=== PATIENT | female | born 1940 | race Caucasian/White ===

== ENCOUNTER → 2017-02-03 | Outpatient (CLI) | payer OTHER ==
[~2017-02-03] MED LIST: ATOR10TA88 PO; ATV/2 PO; CARB1TAB8 PO; LEVO112T2 PO; MCR/40125 PO; OMEP20TA PO; POTASSIUM PO; SERT1TAB68 PO; TRIH2TAB3 PO
--- NOTE | 2017-02-03 15:05 | DIAGNOSTIC IMAGING REPORT ---
RENAL ULTRASOUND HISTORY: Pain ACUTE RENAL INSUFFICIENCY COMPARISON: None. FINDINGS: Right kidney: Maximum dimension 9.1 cm. No evidence for hydronephrosis. Normal corticomedullary differentiation and cortical thickness. Left kidney: Maximum dimension 9.8 cm. No evidence for hydronephrosis. Normal corticomedullary differentiation and cortical thickness. Bladder: No bladder wall thickening. The bilateral ureteral jets were identified. IMPRESSION: Normal renal ultrasound. Electronically signed by: Bandar Plascencia M.D. 02/03/2017 3:04 PM Dictated Date/Time: 02/03/2017 3:03 PM
== END | disposition home or self-care (01) ==
LOC: C.ULTR 14:28
PROVIDERS: ATTEND Internal Medicine Nephrology
DX: N28.9 Disorder of kidney and ureter, unspecified (principal)

== ENCOUNTER → 2017-02-03 | Outpatient (CLI) | payer OTHER ==
[2017-02-03 14:47] LABS: URINE APPEARANCE CLEAR (CLEAR); URINE BILIRUBIN NEG (NEG); URINE COLOR YELLOW; URINE EPITHELIAL CELL AUTO >30 /lpf (0-5); URINE NITRITE NEG (NEG); URINE SPECIFIC GRAVITY 1.012 (1.000-1.030); UROBILINOGEN NEG (NEG); ZZUR CULT IF INDIC CLEAN CATCH NO
[2017-02-03 14:48] LABS: MANUAL MICROSCOPIC REQUIRED? NO; REVIEW REQ? NO
[2017-02-03 15:12] LABS: URINE PROTIEN/CREAT RATIO 0.1 (0-0.2); URINE TOTAL PROTEIN 11.1 mg/dl (0-11.9)
== END | disposition home or self-care (01) ==
LOC: C.LAB1850 13:49
PROVIDERS: ATTEND Internal Medicine Nephrology
DX: N18.9 Chronic kidney disease, unspecified (principal); N28.9 Disorder of kidney and ureter, unspecified

== ENCOUNTER → 2017-03-06 | Outpatient (CLI) | payer OTHER ==
[~2017-03-06] MED LIST changes: +ATOR10TA82 PO; -ATOR10TA88 PO
[2017-03-06 14:37] LABS: BASO % 0.3 %; BASO ABS # 0.01 K/uL (0-0.2); COMPLETE YES; EOS % 3.4 %; HEMATOCRIT 34.6 % (37-47); LYMPH % 42.4 %; LYMPH ABS # 1.64 K/uL (1.2-3.4); MEAN CELL VOLUME 89.2 fL (80-100); MEAN CORPUSCULAR HEMOGLOBIN 29.4 pg (25-34); MEAN CORPUSCULAR HGB CONC 32.9 g/dl (32-36); MEAN PLATELET VOLUME 9.8 fL (7.4-10.4); MONO % 11.4 %; NEUT % 42.5 %; PLATELET COUNT 213 K/uL (130-400); RED BLOOD COUNT 3.88 M/uL (4.2-5.4); WHITE BLOOD COUNT 3.87 K/uL (4.8-10.8)
[2017-03-06 15:07] LABS: BLOOD UREA NITROGEN 20 mg/dl (7-18); BUN/CREATININE RATIO 15.1 (10-20); CALCIUM 8.9 mg/dl (8.5-10.1); CARBON DIOXIDE 30 mmol/L (21-32); CHLORIDE 107 mmol/L (98-107); GLUCOSE 94 mg/dl (70-99); MAGNESIUM 2.3 mg/dl (1.8-2.4); POTASSIUM 4.3 mmol/L (3.5-5.1); SODIUM 142 mmol/L (136-145)
--- NOTE | 2017-03-17 08:46 | CODING QUERY MEDICAL NECESSITY ---
CQSUPPORTING DIAGNOSIS NEEDED A supporting diagnosis is required for the test/procedure performed on this patient in order for us to be reimbursed by the patient's insurance. Please provide a supporting diagnosis for the following test/procedure listed below next to the test name along with your signature. *If there is no additional diagnosis for this patient that would support the following test/procedure please document that below next to the test/procedure. Test(s)/Procedure(s) that require a supporting diagnosis: DOS 03/06/17 VITAMIN D TEST Provider Signature: Date: Thank you Marcia Rodriguez [employer] Once completed, please kindly fax back to [phone] For questions please call [phone]
== END | disposition home or self-care (01) ==
LOC: C.LAB1850 14:00
PROVIDERS: ATTEND Internal Medicine Nephrology
DX: N28.9 Disorder of kidney and ureter, unspecified (principal); E55.9 Vitamin D deficiency, unspecified

== ENCOUNTER → 2017-09-25 | Outpatient (CLI) | payer OTHER ==
[2017-09-25 17:46] LABS: BASO % 0.4 %; BASO ABS # 0.02 K/uL (0-0.2); COMPLETE YES; EOS % 3.3 %; HEMATOCRIT 34.7 % (37-47); IG% 0.2 %; LYMPH % 40.3 %; LYMPH ABS # 2.05 K/uL (1.2-3.4); MEAN CORPUSCULAR HGB CONC 32.6 g/dl (32-36); MEAN PLATELET VOLUME 9.8 fL (7.4-10.4); MONO % 9.8 %; PLATELET COUNT 210 K/uL (130-400); RED BLOOD COUNT 3.77 M/uL (4.2-5.4); WHITE BLOOD COUNT 5.09 K/uL (4.8-10.8)
[2017-09-25 18:04] LABS: BLOOD UREA NITROGEN 18 mg/dl (7-18); BUN/CREATININE RATIO 14.6 (10-20); CALCIUM 8.6 mg/dl (8.5-10.1); CARBON DIOXIDE 29 mmol/L (21-32); CHLORIDE 105 mmol/L (98-107); CREATININE 1.25 mg/dl (0.60-1.20); GLUCOSE 93 mg/dl (70-99); MAGNESIUM 2.4 mg/dl (1.8-2.4); POTASSIUM 3.9 mmol/L (3.5-5.1); SODIUM 139 mmol/L (136-145)
[2017-09-25 18:05] LABS: PHOSPHORUS 2.5 mg/dl (2.5-4.9)
[2017-09-25 18:09] LABS: URINE APPEARANCE CLEAR (CLEAR); URINE BILIRUBIN NEG (NEG); URINE COLOR YELLOW; URINE EPITHELIAL CELL AUTO >30 /lpf (0-5); URINE NITRITE NEG (NEG); URINE SPECIFIC GRAVITY 1.021 (1.000-1.030); UROBILINOGEN NEG (NEG); ZZUR CULT IF INDIC CLEAN CATCH YES
[2017-09-25 18:13] LABS: MANUAL MICROSCOPIC REQUIRED? NO; REVIEW REQ? NO
--- NOTE | 2017-10-02 10:48 | CODING QUERY MEDICAL NECESSITY ---
SUPPORTING DIAGNOSIS NEEDED A supporting diagnosis is required for the test/procedure performed on this patient in order for us to be reimbursed by the patient's insurance. Please provide a supporting diagnosis for the following test/procedure listed below next to the test name along with your signature. *If there is no additional diagnosis for this patient that would support the following test/procedure please document that below next to the test/procedure. Test(s)/Procedure(s) that require a supporting diagnosis: * VITAMIN D, 25-HYDROXY DIAGNOSIS: Provider Signature: Date: Thank you Licha Munoz [employer] Once completed, please kindly fax back to [phone] For questions please call [phone]
== END | disposition home or self-care (01) ==
LOC: C.LAB1850 16:11
PROVIDERS: ATTEND Internal Medicine Nephrology
DX: N18.9 Chronic kidney disease, unspecified (principal); I12.9 Hypertensive chronic kidney disease with stage 1 through stage 4 chronic kidney disease, or unspecified chronic kidney disease; E03.9 Hypothyroidism, unspecified; E55.9 Vitamin D deficiency, unspecified

== ENCOUNTER 2017-11-20 21:18 | Inpatient (IN) | payer OTHER ==
[~2017-11-20] VITALS: Ht 165.1 cm; Wt 71.5 kg
--- NOTE | 2017-11-20 22:11 | DIAGNOSTIC IMAGING REPORT ---
CHEST ONE VIEW PORTABLE HISTORY: Altered mental status. COMPARISON: None. FINDINGS: Left-sided dual-chamber pacemaker. The heart is normal in size. No focal lung consolidations to suggest pneumonia. No evidence for pulmonary edema. A few linear densities the right lung base suggestive subsegmental atelectasis are scarring. No pleural effusions. No pneumothorax. IMPRESSION: No acute process. Electronically signed by: Reilly Carroll M.D. 11/20/2017 10:10 PM Dictated Date/Time: 11/20/2017 10:09 PM
[2017-11-20] MEDS ORDERED: SODIUM CHLORIDE 0.9% 500ML 500 ML IV STA ×2 (22:13→23:27)
--- NOTE | 2017-11-20 22:29 | DIAGNOSTIC IMAGING REPORT ---
HEAD CT NONCONTRAST CT DOSE: HISTORY: Altered mental status. Headache. TECHNIQUE: Multiaxial CT images of the head were performed without the use of intravenous contrast. Automated exposure control was utilized for this study. A dose lowering technique was utilized adhering to the principles of ALARA. Comparison: None. Findings: The paranasal sinuses and mastoid air cells are clear. The calvarium and skull base are intact. There is no mass, hematoma, midline shift, acute infarct. White matter hypodensity is nonspecific but suggestive of microvascular ischemic change. The ventricles and sulci demonstrate mild age-related involutional changes. Mild motion artifact. Ventricular prominence is nonspecific but may be due to central volume loss. Impression: No acute intracranial abnormality. Atrophy and microvascular ischemic changes. Nonspecific ventricular predominance which may be due to central volume loss. Electronically signed by: Reilly Carroll M.D. 11/20/2017 10:28 PM Dictated Date/Time: 11/20/2017 10:24 PM
[2017-11-20] MEDS ORDERED: OMEG10007 PO (22:40)
[2017-11-20] MEDS ORDERED: CHOL2000 PO (22:40)
[2017-11-20] MEDS ORDERED: GABA-113 PO (22:40)
[2017-11-20] MEDS ORDERED: CARB-132 PO (22:40)
[2017-11-20] MEDS ORDERED: MULT-506 PO (22:40)
[2017-11-20 22:41] LABS: BASO % 0.1 %; BASO ABS # 0.01 K/uL (0-0.2); COMPLETE YES; HEMATOCRIT 32.6 % (37-47); IG% 0.5 %; LYMPH ABS # 0.49 K/uL (1.2-3.4); MEAN CELL VOLUME 89.8 fL (80-100); MEAN CORPUSCULAR HEMOGLOBIN 30.9 pg (25-34); MEAN CORPUSCULAR HGB CONC 34.4 g/dl (32-36); MEAN PLATELET VOLUME 9.7 fL (7.4-10.4); MONO % 6.6 %; NEUT % 89.8 %; PLATELET COUNT 165 K/uL (130-400); RED BLOOD COUNT 3.63 M/uL (4.2-5.4); WHITE BLOOD COUNT 16.27 K/uL (4.8-10.8)
[2017-11-20] MEDS ORDERED: FENTANYL CITRATE INJ 50 MCG/1 ML 2 ML VIAL IV STA (22:47)
[2017-11-20] MEDS ORDERED: ACETAMINOPHEN 500 MG TAB PO STA (22:47)
--- NOTE | 2017-11-20 22:48 | DIAGNOSTIC IMAGING REPORT ---
CERVICAL, THORACIC, LUMBAR SPINE CT CT DOSE: 5300.24 mGy.cm HISTORY: Mid and lower back pain. AMS, neck pain TECHNIQUE: Multiaxial CT images of the cervical spine were performed and reformatted in the sagittal and coronal plane without the use of contrast. A dose lowering technique was utilized adhering to the principles of ALARA. COMPARISON: Lumbar spine CT 08/19/2016. FINDINGS: Cervical spine: Straightening of the cervical spine. Mild degenerative disc disease at C5-C6 and C6-C7. No fracture or subluxation. Mild diffuse prevertebral edema. A 6 mm calcification within the prevertebral soft tissues at the C2 level. This results in focal thickening of the prevertebral soft tissues at this location. There is also nonspecific intermuscular edema within the right side of the neck Thoracic spine: No pneumothorax. Pacemaker wires are noted. Cholecystectomy. Paraspinal soft tissues are unremarkable. No fracture subluxation. Mild degenerative disc disease within the mid thoracic spine. Lumbar spine: Old mild superior endplate compression fracture at L1, unchanged. Slight progression of the old moderate to severe supra endplate compression fracture at L2. No significant retropulsion. L3-L4 posterior decompression is again noted. Severe disc space narrowing at L2-L3 and L3-L4 with endplate osteophytes, unchanged. Paraspinal soft tissues are unremarkable. The sacrum appears intact. Stable 2 mm of retrolisthesis of L3 on L4. Old transverse process fractures at L1, L2, and L3. Severe central canal narrowing at L1-L2 due to the central disc protrusion. Moderate to severe central canal narrowing at L2-L3 due to the disc bulge. This remains unchanged. IMPRESSION: 1. No acute fractures seen within the cervical, thoracic, lumbar spine. 2. Prevertebral and right-sided intermuscular edema seen within the neck. This is nonspecific. However, if the patient has had recent trauma then a dedicated cervical spine MRI is recommended to assess for ligamentous injury. Otherwise, this could be due to an infectious process or possibly calcific tendinitis of the longissimus colli muscles. Clinical correlation recommended. 3. Old L1 and L2 compression fractures. The L2 compression fracture slightly progressed. 4. Redemonstration of the degenerative changes and central canal narrowing within the lumbar spine as described above. Electronically signed by: Reilly Carroll M.D. 11/20/2017 10:47 PM Dictated Date/Time: 11/20/2017 10:29 PM
[2017-11-20 22:55] LABS: INR 1.1 (0.9-1.1); PARTIAL THROMBOPLASTIN RATIO 1.2; PROTHROMBIN TIME (PATIENT) 11.8 SECONDS (9.0-12.0)
[2017-11-20 22:59] LABS: ALT/SGPT 20 U/L (12-78); BLOOD UREA NITROGEN 17 mg/dl (7-18); BUN/CREATININE RATIO 13.6 (10-20); CALCIUM 8.3 mg/dl (8.5-10.1); CARBON DIOXIDE 25 mmol/L (21-32); CHLORIDE 103 mmol/L (98-107); CREATININE 1.26 mg/dl (0.60-1.20); GLUCOSE 121 mg/dl (70-99); MAGNESIUM 1.7 mg/dl (1.8-2.4); POTASSIUM 3.8 mmol/L (3.5-5.1); SODIUM 134 mmol/L (136-145)
--- NOTE | 2017-11-20 23:08 | EMERGENCY ROOM VISIT NOTE ---
ED Visit Note First contact with patient: 21:36 I have seen and examined this patient with Bridgett Klein and generally agree with the treatment plan as discussed. Current/Historical Medications Scheduled Atorvastatin (Lipitor), 10 MG PO MWF Carbidopa-Levodopa (Carbidopa/Levodopa), 1 TAB PO DAILY Cholecalciferol (Vitamin D3), 2,000 INTER.UNIT PO BID Fish Oil ([place]-3), 2,000 MG PO DAILY Gabapentin (Neurontin), 300 MG PO TID Levothyroxine Sodium (Synthroid), 112 MCG PO DAILY Lorazepam (Ativan), 1 TAB PO BID Multivitamin (Multivitamin), 1 TAB PO DAILY Omeprazole (Omeprazole), 1 TAB PO BID Sertraline Hcl (Zoloft), 100 MG PO BID Allergies Coded Allergies: Iodinated Contrast Media (Unverified Allergy, Unknown, RED CHEEKS, 02/28/14 ) Metoclopramide (Unverified Allergy, Unknown, UNKNOWN, 11/20/17) Tramadol (Unverified Allergy, Unknown, UNKNOWN, 11/20/17) Vital Signs Date Time Temp Pulse Resp B/P (MAP) Pulse Ox O2 Delivery O2 Flow Rate FiO2 11/20/17 21:33 101 11/20/17 21:24 36.9 101 21 128/85 95 Room Air 11/20/17 21:24 95 Room Air Laboratory Results 11/20/17 22:30 Red Blood Count 3.63, Mean Corpuscular Volume 89.8, Mean Corpuscular Hemoglobin 30.9, Mean Corpuscular Hemoglobin Concent 34.4, Mean Platelet Volume 9.7, Neutrophils (%) (Auto) 89.8, Lymphocytes (%) (Auto) 3.0, Monocytes (%) (Auto) 6.6, Eosinophils (%) (Auto) 0.0, Basophils (%) (Auto) 0.1, Neutrophils # (Auto) 14.62, Lymphocytes # (Auto) 0.49, Monocytes # (Auto) 1.07, Eosinophils # (Auto) 0.00, Basophils # (Auto) 0.01 11/20/17 22:30 Test 11/20/17 21:45 11/20/17 22:30 11/20/17 22:38 Creatine Kinase MB Ratio (0-3.0) White Blood Count 16.27 K/uL (4.8-10.8) Red Blood Count 3.63 M/uL (4.2-5.4) Hemoglobin 11.2 g/dL (12.0-16.0) Hematocrit 32.6 % (37-47) Mean Corpuscular Volume 89.8 fL (80-100) Mean Corpuscular Hemoglobin 30.9 pg (25-34) Mean Corpuscular Hemoglobin Concent 34.4 g/dl (32-36) Platelet Count 165 K/uL (130-400) Mean Platelet Volume 9.7 fL (7.4-10.4) Neutrophils (%) (Auto) 89.8 % Lymphocytes (%) (Auto) 3.0 % Monocytes (%) (Auto) 6.6 % Eosinophils (%) (Auto) 0.0 % Basophils (%) (Auto) 0.1 % Neutrophils # (Auto) 14.62 K/uL (1.4-6.5) Lymphocytes # (Auto) 0.49 K/uL (1.2-3.4) Monocytes # (Auto) 1.07 K/uL (0.11-0.59) Eosinophils # (Auto) 0.00 K/uL (0-0.5) Basophils # (Auto) 0.01 K/uL (0-0.2) RDW Standard Deviation 48.0 fL (36.4-46.3) RDW Coefficient of Variation 14.6 % (11.5-14.5) Immature Granulocyte % (Auto) 0.5 % Immature Granulocyte # (Auto) 0.08 K/uL (0.00-0.02) Prothrombin Time 11.8 SECONDS (9.0-12.0) Prothromb Time International Ratio 1.1 (0.9-1.1) Activated Partial Thromboplast Time 32.0 SECONDS (21.0-31.0) Partial Thromboplastin Ratio 1.2 Anion Gap 7.0 mmol/L (3-11) Est Creatinine Clear Calc Drug Dose 38.2 ml/min Estimated GFR () 48.3 Estimated GFR (Non- 41.6 BUN/Creatinine Ratio 13.6 (10-20) Calcium Level 8.3 mg/dl (8.5-10.1) Magnesium Level 1.7 mg/dl (1.8-2.4) Direct Bilirubin 0.2 mg/dl (0-0.2) Alanine Aminotransferase (ALT/SGPT) 20 U/L (12-78) Albumin 3.2 gm/dl (3.4-5.0) Bedside Lactic Acid Venous 0.85 mmol/L (0.90-1.70) Medications Administered Medications (Trade) Dose Ordered Sig/Karlie Route Start Time Stop Time Status Last Admin Dose Admin Sodium Chloride 500 ml @ 999 mls/hr Q31M STAT IV 11/20/17 22:13 11/20/17 22:43 DC 11/20/17 22:53 999 MLS/HR Fentanyl Citrate (Fentanyl Inj) 50 mcg NOW STAT IV 11/20/17 22:47 11/20/17 22:48 DC 11/20/17 22:53 50 MCG Acetaminophen (Tylenol Tab) 1,000 mg NOW STAT PO 11/20/17 22:47 11/20/17 22:48 DC 11/20/17 22:52 1,000 MG Departure Information Referrals Yevgeniy Mak M.D. (PCP) Patient Instructions My [facility]
[2017-11-20 23:10] LABS: ALKALINE PHOSPHATASE 84 U/L (45-117); AST/SGOT 25 U/L (15-37); CKMB/CK RATIO 0.9 (0-3.0)
[2017-11-20] MEDS ORDERED: MAGNESIUM SULFATE 1GM / D5W 1 GM BAG IV STA (23:27)
[2017-11-20 23:43] LABS: URINE APPEARANCE CLEAR (CLEAR); URINE BILIRUBIN NEG (NEG); URINE COLOR DK YELLOW; URINE EPITHELIAL CELL AUTO >30 /lpf (0-5); URINE NITRITE NEG (NEG); URINE PH 5.5 (4.5-7.5); URINE SPECIFIC GRAVITY 1.029 (1.000-1.030); UROBILINOGEN NEG (NEG); ZZURINE CULT IF INDIC CATH NO
[2017-11-20 23:44] LABS: MANUAL MICROSCOPIC REQUIRED? NO; REVIEW REQ? NO
[2017-11-21] MEDS ORDERED: OPTIRAY 320 IV PRN (01:15)
[2017-11-21] MEDS ORDERED: SODIUM CHLORIDE 0.9% 500ML 500 ML IV STA (02:28)
[2017-11-21] MEDS ORDERED: SODIUM CHLORIDE 0.9% 1000ML 1,000 ML IV STA (02:28)
[2017-11-21] MEDS ORDERED: CEFTRIAXONE SOD INJ 1 GM ADDVIAL IV STA (02:44)
--- NOTE | 2017-11-21 03:08 | History and Physical ---
History & Physical Date & Time of Service: Nov 21, 2017 at 03:01 Chief Complaint: Head & Neck Pain Primary Care Physician: Yevgeniy Mak M.D. History of Present Illness Source: patient 77 y/o F Hx spinal stenosis, CAD, Parkinson disease, torticollis, pacemaker. Presents from home with head and neck pain, impaired gait, weakness, incontinence and possibly confusion and slurred speech per family. She states she has been falling frequently and may have fallen and hit her head the previous day. She denies CP, SOB, N/V or fevers. Imaging of the cervical spine revealed prevertebral edema without evidence of fracture. A head CT was negative for acute findings. Past Medical/Surgical History 1) CAD - distant stent placement 2) Pacemaker 3) Parkinson disease 4) Lumbar stenosis - required decompression of L2-5 in 2013 5) Torticollis 6) Compression fractures of L1,2 Family History Noncontributory to current case Social History Lives with who had recently been admitted to [facility] - does not smoke or drink - maintains basic independence Smoking Status: Never Smoker Multi-Drug Resistant Organisms History of MDRO: No Allergies Coded Allergies: Iodinated Contrast Media (Unverified Allergy, Unknown, RED CHEEKS, 02/28/14 ) Metoclopramide (Unverified Allergy, Unknown, UNKNOWN, 11/20/17) Tramadol (Unverified Allergy, Unknown, UNKNOWN, 11/20/17) Home Medications Scheduled Atorvastatin (Lipitor), 10 MG PO MWF Carbidopa-Levodopa (Carbidopa/Levodopa), 1 TAB PO DAILY Cholecalciferol (Vitamin D3), 2,000 INTER.UNIT PO BID Fish Oil ([place]-3), 2,000 MG PO DAILY Gabapentin (Neurontin), 300 MG PO TID Levothyroxine Sodium (Synthroid), 112 MCG PO DAILY Lorazepam (Ativan), 1 TAB PO BID Multivitamin (Multivitamin), 1 TAB PO DAILY Omeprazole (Omeprazole), 1 TAB PO BID Sertraline Hcl (Zoloft), 100 MG PO BID Review of Systems Constitutional: No fever, No chills, No sweats Eyes: No worsening of vision ENT: No hearing loss, No nasal symptoms Respiratory: No cough, No sputum, No wheezing Cardiovascular: No chest pain, No orthopnea, No PND Abdomen: No pain, No nausea, No vomiting Musculoskeletal: + joint pain (BAck and neck pain) Genitourinary - Female: No dysuria, No urinary frequency, No urinary urgency Neurologic: + weakness, + balance problems, + problem reported (Head and neck pain) Psychiatric: No depression symptoms Endocrine: No fatigue Hematologic / Lymphatic: No abnormal bleeding/bruising Integumentary: No rash Allergic / Immunologic: No environmental allergies Physical Exam Vital Signs Date Time Temp Pulse Resp B/P (MAP) Pulse Ox O2 Delivery O2 Flow Rate FiO2 11/21/17 02:00 95 18 105/59 97 Room Air 11/21/17 01:23 99 18 109/63 97 Room Air 11/21/17 00:26 100 20 122/50 98 Room Air 11/20/17 23:11 105 18 132/59 99 Room Air 11/20/17 21:33 101 11/20/17 21:24 36.9 101 21 128/85 95 Room Air 11/20/17 21:24 95 Room Air General Appearance: + pertinent finding (PLeasant elderly female who appears markedly uncomfortable - she is entirely oriented - speech may be slurred but is coherent and relatively clear) Head: normocephalic, + pertinent finding (No head trauma noted - cervical spine is tender) Eyes: normal inspection ENT: normal ENT inspection, pharynx normal Neck: supple, no JVD Respiratory/Chest: chest non-tender, lungs clear, normal breath sounds Cardiovascular: regular rate, rhythm, no edema, no gallop Abdomen/GI: normal bowel sounds, non tender, soft Back: no CVA tenderness Extremities/Musculoskelatal: normal inspection, no calf tenderness, normal capillary refill Neurologic/Psych: + pertinent finding (She does not exhibit any unilateral discreet weakness or sensory loss presently - she is fully oriented - her head is tilting L - speech may be slighly slurred ) Skin: normal color, warm/dry, no rash Diagnostics Laboratory Results Results Past 24 Hours Test 11/20/17 22:30 11/20/17 22:38 11/20/17 23:20 Range/Units White Blood Count 16.27 4.8-10.8 K/uL Red Blood Count 3.63 4.2-5.4 M/uL Hemoglobin 11.2 12.0-16.0 g/dL Hematocrit 32.6 37-47 % Mean Corpuscular Volume 89.8 80-100 fL Mean Corpuscular Hemoglobin 30.9 25-34 pg Mean Corpuscular Hemoglobin Concent 34.4 32-36 g/dl Platelet Count 165 130-400 K/uL Mean Platelet Volume 9.7 7.4-10.4 fL Neutrophils (%) (Auto) 89.8 % Lymphocytes (%) (Auto) 3.0 % Monocytes (%) (Auto) 6.6 % Eosinophils (%) (Auto) 0.0 % Basophils (%) (Auto) 0.1 % Neutrophils # (Auto) 14.62 1.4-6.5 K/uL Lymphocytes # (Auto) 0.49 1.2-3.4 K/uL Monocytes # (Auto) 1.07 0.11-0.59 K/uL Eosinophils # (Auto) 0.00 0-0.5 K/uL Basophils # (Auto) 0.01 0-0.2 K/uL RDW Standard Deviation 48.0 36.4-46.3 fL RDW Coefficient of Variation 14.6 11.5-14.5 % Immature Granulocyte % (Auto) 0.5 % Immature Granulocyte # (Auto) 0.08 0.00-0.02 K/uL Prothrombin Time 11.8 9.0-12.0 SECONDS Prothromb Time International Ratio 1.1 0.9-1.1 Activated Partial Thromboplast Time 32.0 21.0-31.0 SECONDS Partial Thromboplastin Ratio 1.2 Sodium Level 134 136-145 mmol/L Potassium Level 3.8 3.5-5.1 mmol/L Chloride Level 103 98-107 mmol/L Carbon Dioxide Level 25 21-32 mmol/L Anion Gap 7.0 3-11 mmol/L Blood Urea Nitrogen 17 7-18 mg/dl Creatinine 1.26 0.60-1.20 mg/dl Est Creatinine Clear Calc Drug Dose 38.2 ml/min Estimated GFR () 48.3 Estimated GFR (Non- 41.6 BUN/Creatinine Ratio 13.6 10-20 Random Glucose 121 70-99 mg/dl Calcium Level 8.3 8.5-10.1 mg/dl Magnesium Level 1.7 1.8-2.4 mg/dl Total Bilirubin 0.6 0.2-1 mg/dl Direct Bilirubin 0.2 0-0.2 mg/dl Aspartate Amino Transf (AST/SGOT) 25 15-37 U/L Alanine Aminotransferase (ALT/SGPT) 20 12-78 U/L Alkaline Phosphatase 84 45-117 U/L Total Creatine Kinase 332 26-192 U/L Creatine Kinase MB 3.1 0.5-3.6 ng/ml Creatine Kinase MB Ratio 0.9 0-3.0 Troponin I < 0.015 0-0.045 ng/ml Total Protein 7.1 6.4-8.2 gm/dl Albumin 3.2 3.4-5.0 gm/dl Thyroid Stimulating Hormone (TSH) 1.400 0.300-4.500 uIu/ml Bedside Lactic Acid Venous 0.85 0.90-1.70 mmol/L Urine Color DK YELLOW Urine Appearance CLEAR CLEAR Urine pH 5.5 4.5-7.5 Urine Specific [place] 1.029 1.000-1.030 Urine Protein 2+ NEG Urine Glucose (UA) NEG NEG Urine Ketones 1+ NEG Urine Occult Blood NEG NEG Urine Nitrite NEG NEG Urine Bilirubin NEG NEG Urine Urobilinogen NEG NEG Urine Leukocyte Esterase NEG NEG Urine WBC (Auto) 1-5 0-5 /hpf Urine RBC (Auto) 0-4 0-4 /hpf Urine Hyaline Casts (Auto) 5-10 0-5 /lpf Urine Epithelial Cells (Auto) >30 0-5 /lpf Urine Bacteria (Auto) NEG NEG Diagnostic Radiology CT spine: 1. No acute fractures seen within the cervical, thoracic, lumbar spine. 2. Prevertebral and right-sided intermuscular edema seen within the neck. This is nonspecific. However, if the patient has had recent trauma then a dedicated cervical spine MRI is recommended to assess for ligamentous injury. Otherwise, this could be due to an infectious process or possibly calcific tendinitis of the longissimus colli muscles. Clinical correlation recommended. 3. Old L1 and L2 compression fractures. The L2 compression fracture slightly progressed. 4. Redemonstration of the degenerative changes and central canal narrowing within the lumbar spine as described above. CT head: No acute findings EKG ventricular pacing Impression Assessment and Plan 77 y/o F Hx spinal stenosis, CAD, Parkinson disease, torticollis, pacemaker. Presents from home with head and neck pain, impaired gait, weakness, incontinence and possibly confusion and slurred speech per family. She states she has been falling frequently and may have fallen and hit her head the previous day. She denies CP, SOB, N/V or fevers. Imaging of the cervical spine revealed prevertebral edema without evidence of fracture. A head CT was negative for acute findings. 1) Fall - neck pain - prevertebral edema on CT - MRI ordered although we need to determine if her pacer is MRI-compatible. We have consulted her orthopedist. Infection is listed in the differential per radiology and she does have leukocytosis although without a fever. She received a dose of Ceftriaxone in the ER - we will hold additional dosing pending further evaluation. 2) Impaired gait and multiple falls - there do not appear to be any acute lumbar spine changes. Her gait may be worsening due to Parkinson as well. We will obtain PT/OT eval and she may need short-term rehab if cleared by orthopedics. She does not appear to have suffered significant head trauma. 3) Slurred speech and confusion reported. Suspicion for CVA is low - she is fully oriented and it is difficult to gauge her baseline. We will obtain an MRI brain if possible. . 4) CAD - no evidence of acute ischemia - there is a slight CK elevation which may have resulted from her fall and musculoskeletal trauma. 5) Parkinson disease - continue Sinemet - no tremors were noted on exam. Full code - SCDs due to head trauma Total time for this admit including review of labs, meds, imaging - discussion with pt and ER attending Level of Care Med/Surg Resuscitation Status FULL RESUSCITATION VTE Prophylaxis Given or contraindicated: SCD's
[2017-11-21] MEDS ORDERED: MAGNESIUM SULFATE 1GM / D5W 1 GM in PREMIXED IN D5W 100 ML IV SCH (03:15)
--- NOTE | 2017-11-21 03:25 | EMERGENCY ROOM VISIT NOTE ---
History First contact with patient: 21:36 Chief Complaint: NEURO SYMPTOMS Stated Complaint: HEAD & NECK PAIN History of Present Illness The patient is a 77 year old female who presents to the Emergency Room with complaints of head, right sided neck and back pain for the past few days with increasing difficulty ambulating, frequent falls, and loss of urine control for the past few weeks. Patient has Parkinson's with some dementia. The family states she is becoming more confused with slurred speech for the past several days. states that she's been falling more often. states that she had a UTI 2 weeks ago but was not given antibiotics. Family also states she's become more restless. Patient denies chest pain, dyspnea, abdominal pain, vomiting, diarrhea, fever. She is tolerating by mouth fluids and food. Review of Systems See HPI for pertinent positives & negatives. A total of 10 systems reviewed and were otherwise negative. Past Medical/Surgical History Medical Problems: (1) Altered mental status (2) Gait abnormality Parkinson's, coronary artery disease, dementia, pacemaker, hypothyroidism, chronic back pain with back surgery Social History Smoking Status: Never Smoker Smokeless Tobacco Use: No Drug Use: none Marital Status: Housing Status: lives with family Current/Historical Medications Scheduled Atorvastatin (Lipitor), 10 MG PO MWF Carbidopa-Levodopa (Carbidopa/Levodopa), 1 TAB PO DAILY Cholecalciferol (Vitamin D3), 2,000 INTER.UNIT PO BID Fish Oil ([place]-3), 2,000 MG PO DAILY Gabapentin (Neurontin), 300 MG PO TID Levothyroxine Sodium (Synthroid), 112 MCG PO DAILY Lorazepam (Ativan), 1 TAB PO BID Multivitamin (Multivitamin), 1 TAB PO DAILY Omeprazole (Omeprazole), 1 TAB PO BID Sertraline Hcl (Zoloft), 100 MG PO BID Physical Exam Vital Signs Date Time Temp Pulse Resp B/P (MAP) Pulse Ox O2 Delivery O2 Flow Rate FiO2 11/21/17 03:09 94 18 114/62 96 Room Air 11/21/17 02:00 95 18 105/59 97 Room Air 11/21/17 01:23 99 18 109/63 97 Room Air 11/21/17 00:26 100 20 122/50 98 Room Air 11/20/17 23:11 105 18 132/59 99 Room Air 11/20/17 21:33 101 11/20/17 21:24 36.9 101 21 128/85 95 Room Air 11/20/17 21:24 95 Room Air Physical Exam PHYSICAL EXAM: VITALS: Vitals are noted on the nurse's note and reviewed by myself. Vital signs stable. GENERAL: Pleasant female answering questions appropriately, tremulous and constantly moving her legs, in no acute distress, nondiaphoretic SKIN: The skin was without obvious lacerations or abrasions. Capillary reflex less than 2 seconds. HEAD: Normocephalic atraumatic. EARS: External auditory canals clear, tympanic membranes pearly de anda without erythema or effusion bilaterally. No hemotympanums. No hansen sign. No mastoid tenderness. EYES: Pupils equal round and reactive to light and accommodation. Conjunctivae without injection, sclerae without icterus. Extraocular movements intact. Fundoscopic exam without hemorrhages or papilledema. NOSE: Patent, turbinates without inflammation or discharge. No sinus tenderness. No septal hematoma or bleeding. FACE: No facial bone tenderness. Full range of motion of the jaw without tenderness. MOUTH: Mucous membranes dry. Pharynx without erythema or exudate. Uvula midline. Airway patent. Tongue does not deviate. NECK: Supple without nuchal rigidity. Cervical spine is nontender. Right lateral neck tenderness Full range of motion of the neck with right-sided neck tenderness. No JVD. HEART: Regular rate and rhythm LUNGS: Clear to auscultation bilaterally without wheezes, rales or rhonchi. No dullness to percussion. No retractions or accessory muscle use. No chest wall tenderness. ABDOMEN: Positive bowel sounds x 4. Normal tympanic percussion. Soft, nontender, without masses or organomegaly. No guarding or rebound tenderness. MUSCULOSKELETAL: Diffuse tenderness of the thoracic and lumbar spine. No tenderness with pelvic rocking. Full range of motion without tenderness to palpation in all extremities. Strength 5/5 throughout. Peripheral pulses 2+. NEURO: Patient was alert and oriented to person place and time. Normal sensation to light and sharp touch. Negative pronator drift. No focal neurological deficits. Medical Decision & Procedures Laboratory Results 11/20/17 22:30 Red Blood Count 3.63, Mean Corpuscular Volume 89.8, Mean Corpuscular Hemoglobin 30.9, Mean Corpuscular Hemoglobin Concent 34.4, Mean Platelet Volume 9.7, Neutrophils (%) (Auto) 89.8, Lymphocytes (%) (Auto) 3.0, Monocytes (%) (Auto) 6.6, Eosinophils (%) (Auto) 0.0, Basophils (%) (Auto) 0.1, Neutrophils # (Auto) 14.62, Lymphocytes # (Auto) 0.49, Monocytes # (Auto) 1.07, Eosinophils # (Auto) 0.00, Basophils # (Auto) 0.01 11/20/17 22:30 Test 11/20/17 22:30 11/20/17 22:38 11/20/17 23:20 White Blood Count 16.27 K/uL (4.8-10.8) Red Blood Count 3.63 M/uL (4.2-5.4) Hemoglobin 11.2 g/dL (12.0-16.0) Hematocrit 32.6 % (37-47) Mean Corpuscular Volume 89.8 fL (80-100) Mean Corpuscular Hemoglobin 30.9 pg (25-34) Mean Corpuscular Hemoglobin Concent 34.4 g/dl (32-36) Platelet Count 165 K/uL (130-400) Mean Platelet Volume 9.7 fL (7.4-10.4) Neutrophils (%) (Auto) 89.8 % Lymphocytes (%) (Auto) 3.0 % Monocytes (%) (Auto) 6.6 % Eosinophils (%) (Auto) 0.0 % Basophils (%) (Auto) 0.1 % Neutrophils # (Auto) 14.62 K/uL (1.4-6.5) Lymphocytes # (Auto) 0.49 K/uL (1.2-3.4) Monocytes # (Auto) 1.07 K/uL (0.11-0.59) Eosinophils # (Auto) 0.00 K/uL (0-0.5) Basophils # (Auto) 0.01 K/uL (0-0.2) RDW Standard Deviation 48.0 fL (36.4-46.3) RDW Coefficient of Variation 14.6 % (11.5-14.5) Immature Granulocyte % (Auto) 0.5 % Immature Granulocyte # (Auto) 0.08 K/uL (0.00-0.02) Prothrombin Time 11.8 SECONDS (9.0-12.0) Prothromb Time International Ratio 1.1 (0.9-1.1) Activated Partial Thromboplast Time 32.0 SECONDS (21.0-31.0) Partial Thromboplastin Ratio 1.2 Anion Gap 7.0 mmol/L (3-11) Est Creatinine Clear Calc Drug Dose 38.2 ml/min Estimated GFR () 48.3 Estimated GFR (Non- 41.6 BUN/Creatinine Ratio 13.6 (10-20) Calcium Level 8.3 mg/dl (8.5-10.1) Magnesium Level 1.7 mg/dl (1.8-2.4) Total Bilirubin 0.6 mg/dl (0.2-1) Direct Bilirubin 0.2 mg/dl (0-0.2) Aspartate Amino Transf (AST/SGOT) 25 U/L (15-37) Alanine Aminotransferase (ALT/SGPT) 20 U/L (12-78) Alkaline Phosphatase 84 U/L (45-117) Total Creatine Kinase 332 U/L (26-192) Creatine Kinase MB 3.1 ng/ml (0.5-3.6) Creatine Kinase MB Ratio 0.9 (0-3.0) Troponin I < 0.015 ng/ml (0-0.045) Total Protein 7.1 gm/dl (6.4-8.2) Albumin 3.2 gm/dl (3.4-5.0) Thyroid Stimulating Hormone (TSH) 1.400 uIu/ml (0.300-4.500) Bedside Lactic Acid Venous 0.85 mmol/L (0.90-1.70) Urine Color DK YELLOW Urine Appearance CLEAR (CLEAR) Urine pH 5.5 (4.5-7.5) Urine Specific [place] 1.029 (1.000-1.030) Urine Protein 2+ (NEG) Urine Glucose (UA) NEG (NEG) Urine Ketones 1+ (NEG) Urine Occult Blood NEG (NEG) Urine Nitrite NEG (NEG) Urine Bilirubin NEG (NEG) Urine Urobilinogen NEG (NEG) Urine Leukocyte Esterase NEG (NEG) Urine WBC (Auto) 1-5 /hpf (0-5) Urine RBC (Auto) 0-4 /hpf (0-4) Urine Hyaline Casts (Auto) 5-10 /lpf (0-5) Urine Epithelial Cells (Auto) >30 /lpf (0-5) Urine Bacteria (Auto) NEG (NEG) Medications Administered Medications (Trade) Dose Ordered Sig/Karlie Route Start Time Stop Time Status Last Admin Dose Admin Sodium Chloride 500 ml @ 999 mls/hr Q31M STAT IV 11/20/17 22:13 11/20/17 22:43 DC 11/20/17 22:53 999 MLS/HR Fentanyl Citrate (Fentanyl Inj) 50 mcg NOW STAT IV 11/20/17 22:47 11/20/17 22:48 DC 11/20/17 22:53 50 MCG Acetaminophen (Tylenol Tab) 1,000 mg NOW STAT PO 11/20/17 22:47 11/20/17 22:48 DC 11/20/17 22:52 1,000 MG Sodium Chloride 500 ml @ 999 mls/hr Q31M STAT IV 11/20/17 23:27 11/20/17 23:57 DC 11/20/17 23:35 999 MLS/HR Magnesium Sulfate (Magnesium Sulfate) 1 gm NOW STAT IV 11/20/17 23:27 11/20/17 23:28 DC 11/20/17 23:34 1 GM Sodium Chloride 500 ml @ 999 mls/hr Q31M STAT IV 11/21/17 02:28 11/21/17 02:58 DC 11/21/17 03:08 999 MLS/HR Ceftriaxone Sodium (Rocephin Inj) 1 gm NOW STAT IV 11/21/17 02:44 11/21/17 02:45 DC 11/21/17 03:08 1 GM ED Course Prior records/ancillary studies reviewed and summarized above. Nursing notes reviewed. Additional history obtained from family The patient's history was concerning for increasing confusion, difficulty walking, had neck and back pain Differential diagnosis: Etiologies such as metabolic, infection, trauma, hypo/hyperglycemia, electrolyte abnormalities, cardiac sources, intracerebral event, toxicologic, neurologic, as well as others were entertained. Physical examination: As above. ER treatment provided: IV Lock IV fluids, Riley J collar On reassessment the patient felt better. Diagnostics interpretation by me: ECG: Paced Atrial ventricular rhythm with no acute ST-T wave changes, rate of 100. Impression paced ventricular rhythm interpreted by myself and is unchanged from prior in 2014 The labs revealed neg UA Leukocytosis. Stable H&H. Negative lactic acid Imaging studies: CERVICAL, THORACIC, LUMBAR SPINE CT CT DOSE: 5300.24 mGy.cm HISTORY: Mid and lower back pain. AMS, neck pain TECHNIQUE: Multiaxial CT images of the cervical spine were performed and reformatted in the sagittal and coronal plane without the use of contrast. A dose lowering technique was utilized adhering to the principles of ALARA. COMPARISON: Lumbar spine CT 08/19/2016. FINDINGS: Cervical spine: Straightening of the cervical spine. Mild degenerative disc disease at C5-C6 and C6-C7. No fracture or subluxation. Mild diffuse prevertebral edema. A 6 mm calcification within the prevertebral soft tissues at the C2 level. This results in focal thickening of the prevertebral soft tissues at this location. There is also nonspecific intermuscular edema within the right side of the neck Thoracic spine: No pneumothorax. Pacemaker wires are noted. Cholecystectomy. Paraspinal soft tissues are unremarkable. No fracture subluxation. Mild degenerative disc disease within the mid thoracic spine. Lumbar spine: Old mild superior endplate compression fracture at L1, unchanged. Slight progression of the old moderate to severe supra endplate compression fracture at L2. No significant retropulsion. L3-L4 posterior decompression is again noted. Severe disc space narrowing at L2-L3 and L3-L4 with endplate osteophytes, unchanged. Paraspinal soft tissues are unremarkable. The sacrum appears intact. Stable 2 mm of retrolisthesis of L3 on L4. Old transverse process fractures at L1, L2, and L3. Severe central canal narrowing at L1-L2 due to the central disc protrusion. Moderate to severe central canal narrowing at L2-L3 due to the disc bulge. This remains unchanged. IMPRESSION: 1. No acute fractures seen within the cervical, thoracic, lumbar spine. 2. Prevertebral and right-sided intermuscular edema seen within the neck. This is nonspecific. However, if the patient has had recent trauma then a dedicated cervical spine MRI is recommended to assess for ligamentous injury. Otherwise, this could be due to an infectious process or possibly calcific tendinitis of the longissimus colli muscles. Clinical correlation recommended. 3. Old L1 and L2 compression fractures. The L2 compression fracture slightly progressed. 4. Redemonstration of the degenerative changes and central canal narrowing within the lumbar spine as described above. Electronically signed by: Reilly Carroll M.D. 11/20/2017 10:47 PM Dictated Date/Time: 11/20/2017 10:29 PM [~ rep ct add3]] HEAD CT NONCONTRAST CT DOSE: HISTORY: Altered mental status. Headache. TECHNIQUE: Multiaxial CT images of the head were performed without the use of intravenous contrast. Automated exposure control was utilized for this study. A dose lowering technique was utilized adhering to the principles of ALARA. Comparison: None. Findings: The paranasal sinuses and mastoid air cells are clear. The calvarium and skull base are intact. There is no mass, hematoma, midline shift, acute infarct. White matter hypodensity is nonspecific but suggestive of microvascular ischemic change. The ventricles and sulci demonstrate mild age-related involutional changes. Mild motion artifact. Ventricular prominence is nonspecific but may be due to central volume loss. Impression: No acute intracranial abnormality. Atrophy and microvascular ischemic changes. Nonspecific ventricular predominance which may be due to central volume loss. [~ rep ct add3]] CHEST ONE VIEW PORTABLE HISTORY: Altered mental status. COMPARISON: None. FINDINGS: Left-sided dual-chamber pacemaker. The heart is normal in size. No focal lung consolidations to suggest pneumonia. No evidence for pulmonary edema. A few linear densities the right lung base suggestive subsegmental atelectasis are scarring. No pleural effusions. No pneumothorax. IMPRESSION: No acute process. Electronically signed by: Reilly Carroll M.D. 11/20/2017 10:28 PM Dictated Date/Time: 11/20/2017 10:24 PM US NECK: Right cervical nodes. Right muscular thickening and hyperemia Radiologist: Indio Tamayo M.D. CT NECK: Comparison: CT cervical spine 11/20/17 Evaluation limited by motion artifact. No evidence of abscess. Prevertebral soft tissue swelling C1-C4 and calcification within the prevertebral soft tissues at level of C2, as demonstrated on prior CT of cervical spine. Considerations include infection, angioedema, and calcific tendinitis. Given calcification, calcific tendinitis is considered most likely although the location of the calcification is more anterior than typical. Radiologist: Yo Sesay MD Family is unsure what the IV contrast allergy is. By chart review there was mention of redness to the cheeks with IV contrast. Patient and family were asked about this and believe this is correct. They do not believe there was any anaphylaxis or airway compromise. Further imaging was then ordered. Consultation: A consultation was placed with the hospitalist, Dr Herring. The case was discussed and diagnostics were reviewed. The patient was evaluated in the ER for further treatment. Exam and history seem consistent with increased weakness, urinary loss and head and neck pain. Since the patient had increased neck pain and has a leukocytosis I did opt to give antibiotics for possible infectious cause for the neck pain but this seems more consistent with a calcification. Patient has had recurrent torticollis. Patient was weak and had increasing falls. Family does not feel comfortable caring for her at home. She will be evaluated by medicine for possible admission. By the evaluation outlined above emergent etiologies such as electrolyte abnormalities, cardiac sources, intracerebral event, toxologic, abnormalities blood glucose, metabolic, as well as others were deemed relatively unlikely. The pt informed about the findings as listed above. All questions were answered and pleased with the treatment. Case reviewed with my Attending. Medical Decision As above Medication Reconcilliation Current Medication List: was personally reviewed by me Blood Pressure Screening Patient's blood pressure: Normal blood pressure Impression Primary Impression: Weakness Additional Impressions: Fall Neck pain Headache Anemia Departure Information Dispostion Being Evaluated By Hospitalist Condition FAIR Referrals Yevgeniy Mak M.D. (PCP) Patient Instructions My [facility] Problem Qualifiers
[2017-11-21] MEDS ORDERED: HEPARIN SOD 5000 UNIT/0.5 ML CARP SQ SCH (03:30)
[2017-11-21] MEDS ORDERED: POLYETHYLENE (MIRALAX) 17 GM PACK PO PRN (03:30)
[2017-11-21] MEDS ORDERED: MAGNESIUM HYDROXIDE SUSP 30 ML UDC PO PRN (03:30)
[2017-11-21] MEDS ORDERED: ONDANSETRON INJ 2 MG/ML 2 ML VIAL IV PRN (03:30)
[2017-11-21] MEDS ORDERED: ALUMINUM/MAGNESIUM/SIMETH (MAALOX MAX) 30 ML UDC PO PRN (03:30)
[2017-11-21] MEDS: ACETAMINOPHEN 325 MG TAB PO PRN ×2 (04:34→19:52)
[2017-11-21] MEDS ORDERED: NSS + 20MEQ KCL 1000ML 1,000 ML IV SCH (04:45)
[2017-11-21 04:54] VITALS: BP 118/65; PULSE 96; TEMP 36.4; O2SAT 95; Ht 165.1 cm; Wt 71.5 kg
[2017-11-21] MEDS: LEVOTHYROXINE 112 MCG TAB PO SCH (05:12)
--- NOTE | 2017-11-21 06:45 | DIAGNOSTIC IMAGING REPORT ---
SOFT TISS HEAD/NECK-THYROID CLINICAL HISTORY: 77 years-old Female presenting with right neck pain/swelling, ? infx, history of falls and Parkinson's disease. TECHNIQUE: Real-time grayscale and color Doppler ultrasound imaging of the right neck was performed at the site of clinical concern. COMPARISON: CT performed subsequently on 11/21/2017. FINDINGS: At the site of clinical concern in the superior right cervical region near the angle of the mandible, normal subcutaneous fat and musculature. Few subcentimeter benign-appearing lymph nodes evident. No significant abnormality of the right sternocleidomastoid. No hyperemia. No fluid collection. IMPRESSION: Few reactive lymph nodes at the site of clinical concern. No suspicious sonographic abnormality. Please see separately dictated CT of the neck for additional findings. Electronically signed by: Dontae Pleitze M.D. 11/21/2017 6:44 AM Dictated Date/Time: 11/21/2017 6:40 AM
--- NOTE | 2017-11-21 06:47 | DIAGNOSTIC IMAGING REPORT ---
SOFT TISSUE NECK WITH CLINICAL HISTORY: right sided neck pain, ? infx/chronic tendonitis COMPARISON STUDY: Neck ultrasound November 20, 2017. TECHNIQUE: Axial images of the neck were obtained following intravenous injection of 93 cc of Optiray 320 IV. FINDINGS: This exam is moderately compromised by motion artifact. No cervical lymphadenopathy is present. The epiglottis is normal. There is moderate prevertebral edema as shown on cervical spine CT of November 20, 2017. There is a 7 mm calcification within the prevertebral soft tissues at the C2 level. There is also subtle cortical irregularity of the inferior aspect of the anterior arch of C1. No rim-enhancing fluid collection is identified. Visualized portions of the airway are patent. No acute cervical spine fracture is identified. There is mild right sided edema within the neck. There is no soft tissue gas. IMPRESSION: Nonspecific prevertebral and right sided cervical edema. If recent trauma, MRI of the cervical spine is recommended to exclude ligamentous injury. In the absence of trauma, calcific tendinitis of the longus colli muscle is favored. However, an infectious process could appear similar. Electronically signed by: Neeraj Yeung M.D. 11/21/2017 6:45 AM Dictated Date/Time: 11/21/2017 6:33 AM
[2017-11-21 07:32] VITALS: BP 118/71; PULSE 92; TEMP 36.8; O2SAT 96
[2017-11-21] MEDS ORDERED: NURSING VERBAL MED ORDER ONE (08:15)
[2017-11-21] MEDS: KETOROLAC TROMETHAMINE 15 MG/ML VIAL IV. PRN ×3 (08:31→20:40)
[2017-11-21 08:52] LABS: HEMATOCRIT 30.4 % (37-47); MEAN CELL VOLUME 90.5 fL (80-100); MEAN CORPUSCULAR HEMOGLOBIN 30.7 pg (25-34); MEAN CORPUSCULAR HGB CONC 33.9 g/dl (32-36); PLATELET COUNT 148 K/uL (130-400); RED BLOOD COUNT 3.36 M/uL (4.2-5.4); WHITE BLOOD COUNT 13.63 K/uL (4.8-10.8)
[2017-11-21] MEDS: SERTRALINE HCL 100 MG TAB PO SCH ×2 (09:00→20:32)
[2017-11-21] MEDS ORDERED: CARBIDOPA/LEVODOPA 10/100MG TAB PO SCH (09:00)
[2017-11-21] MEDS ORDERED: PANTOprazole SOD 40 MG TAB PO SCH (09:00)
[2017-11-21] MEDS ORDERED: PANTOprazole INJ 40 MG in SYRINGE 0 ML IV SCH (09:00)
[2017-11-21] MEDS ORDERED: LORAZEPAM INJ 1 MG in SYRINGE 0.5 ML IV SCH (09:00)
[2017-11-21] MEDS: GABAPENTIN 300 MG CAP PO SCH ×3 (09:00→20:32)
[2017-11-21] MEDS ORDERED: LORAZEPAM 2 MG TAB PO SCH (09:00)
[2017-11-21] MEDS ORDERED: LEVOTHYROXINE SODIUM INJ 56 MCG in SYRINGE 0 ML IV SCH (09:00)
[2017-11-21] MEDS: CHOLECALCIFEROL 1000 INTER.UNIT TAB PO SCH ×2 (09:00→20:32)
[2017-11-21] MEDS: OMEGA-3 (PURIFIED FISH OIL) 1 GM CAP PO SCH (09:00)
[2017-11-21 09:11] LABS: BUN/CREATININE RATIO 14.2 (10-20); CREATININE 1.11 mg/dl (0.60-1.20); MAGNESIUM 2.1 mg/dl (1.8-2.4); POTASSIUM 3.8 mmol/L (3.5-5.1)
[2017-11-21] MEDS ORDERED: SODIUM BICARB 8.4% INJ 50 MEQ/50 ML SYR IV ONE (09:41)
[2017-11-21] MEDS ORDERED: ADENOSINE IV SOLN 3 MG/ML 2 ML VIAL IV ONE (09:41)
[2017-11-21] MEDS ORDERED: SODIUM CHLORIDE 0.9% 10ML FLUSH IV ONE (09:41)
--- NOTE | 2017-11-21 11:02 | Neurology Consultation ---
Neurology Consultation Date of Consultation: Nov 21, 2017. Attending Physician: Catracho Herring M.D. Primary Care Physician: Yevgeniy Mak M.D. Reason for Consultation: Movement disorder History of Present Illness Source: patient, clinic records, hospital records The patient is a 77-year-old female who is known to me. I evaluated her 2 months ago for an initial assessment of dyskinesias which began about 8 years ago after prolonged metoclopramide use. Her dyskinesias are extensive and involve the perioral musculature, tongue, head and neck musculature, and the limbs. She has been receiving Botox treatments in [place] to address cervical dystonia. She has previously tried Artane and gabapentin for her abnormal movements without much benefit. When I initially evaluated this patient, she had been taking Sinemet to address her abnormal movements. She does not really have Parkinson's disease. However, an element of drug-induced parkinsonism was potentially considered. I did recommend stopping the Sinemet, however as it was not clear if this medication was really conferring any benefit. I did recommend a trial of amantadine as an alternative. However, the patient complained of side effects related to this medication and it was subsequently discontinued. I had then recommended a trial of Austedo which is indicated for tardive dyskinesia (as well as treatment of Monisha's disease). The patient informs me that she never started this medication and instead elected to go back on her Sinemet. The patient presents with worsening dyskinesias over the past few weeks , as well as increasing difficulty with balance and falls. Past medical history notable for chronic, stable ventricular enlargement. The patient also complains of worsening right-sided neck pain with radiation into the head. She reports that her neurologist in [place] elected to hold her Botox treatment recently, possibly due to the above medication changes. Past Medical/Surgical History Medical Problems: (1) Anemia Status: Acute (2) Fall Status: Acute (3) Headache Status: Acute (4) Neck pain Status: Acute (5) Weakness Status: Acute Family History No known family history of Mora's disease or other hyperkinetic movement disorder Social History Smokeless Tobacco Use: No Drug Use: none Marital Status: Housing Status: lives with family Allergies Coded Allergies: Iodinated Contrast Media (Unverified Allergy, Unknown, RED CHEEKS, 02/28/14 ) Metoclopramide (Unverified Allergy, Unknown, UNKNOWN, 11/20/17) Tramadol (Unverified Allergy, Unknown, UNKNOWN, 11/20/17) Current Inpatient Medications Current Inpatient Medications Medications (Trade) Dose Ordered Sig/Karlie Route Start Time Stop Time Status Last Admin Dose Admin Ioversol (Optiray 320) 100 ml UD PRN IV 11/21/17 01:15 11/25/17 01:14 Atorvastatin Calcium (Lipitor Tab) 10 mg HS PO 11/21/17 21:00 12/21/17 20:59 Carbidopa/Levodopa (Sinemet 10/ 100MG Tab) 1 tab DAILY PO 11/21/17 09:00 12/21/17 08:59 Fish Oil ([place]-3 (Purified Fish Oil) Cap) 2 gm DAILY PO 11/21/17 09:00 12/21/17 08:59 Gabapentin (Neurontin Cap) 300 mg TID PO 11/21/17 09:00 12/21/17 08:59 Levothyroxine Sodium (Synthroid Tab) 112 mcg DAILYBB PO 11/21/17 06:00 12/21/17 05:59 Future Hold 11/21/17 05:12 112 MCG Lorazepam (Ativan Tab) 2 mg BID PO 11/21/17 09:00 12/21/17 08:59 Future Hold Sertraline HCl (Zoloft Tab) 100 mg BID PO 11/21/17 09:00 12/21/17 08:59 Cholecalciferol (Vitamin D Tab) 2,000 inter.unit BID PO 11/21/17 09:00 12/21/17 08:59 Pantoprazole Sodium (Protonix Tab) 40 mg BID PO 11/21/17 09:00 12/21/17 08:59 Future Hold Potassium Chloride/Sodium Chloride 1,000 ml @ 80 mls/hr [id number] IV 11/21/17 04:45 11/21/17 17:14 11/21/17 05:12 80 MLS/HR Acetaminophen (Tylenol Tab) 650 mg Q4H PRN PO 11/21/17 03:30 12/21/17 03:29 11/21/17 04:34 650 MG Al Hydrox/Mg Hydrox/Simethicone (Maalox Max Susp) 15 ml Q4H PRN PO 11/21/17 03:30 12/21/17 03:29 Magnesium Hydroxide (Milk Of Magnesia Susp) 30 ml Q6H PRN PO 11/21/17 03:30 12/21/17 03:29 Polyethylene (Miralax Powder Packet) 17 gm DAILY PRN PO 11/21/17 03:30 12/21/17 03:29 Ondansetron HCl (Zofran Inj) 4 mg Q6H PRN IV 11/21/17 03:30 12/21/17 03:29 Ketorolac Tromethamine (Toradol Inj) 15 mg Q6H PRN IV. 11/21/17 08:15 11/26/17 08:14 11/21/17 08:31 15 MG Pantoprazole Sodium 40 mg/ Syringe 10 ml @ 5 mls/min DAILY@ IV 11/21/17 09:00 12/21/17 08:59 Lorazepam 1 mg/ Syringe 1 ml @ 0.5 mls/min BID IV 11/21/17 09:00 12/21/17 08:59 Levothyroxine Sodium 56 mcg/ Syringe 2.8 ml @ 1.4 mls/min DAILY@ IV 11/22/17 09:00 12/21/17 08:59 Review of Systems Constitutional: No fever or chills Neurological: As per history of present illness Musculoskeletal: As per history of present illness Physical Exam Vital Signs (Past 24 Hrs): Date Time Temp Pulse Resp B/P (MAP) Pulse Ox O2 Delivery O2 Flow Rate FiO2 11/21/17 08:00 Room Air 11/21/17 07:32 36.8 92 20 118/71 (87) 96 Room Air 11/21/17 04:54 36.4 96 18 118/65 95 Room Air 11/21/17 04:01 92 18 124/59 96 11/21/17 03:31 99 11/21/17 03:09 94 18 114/62 96 Room Air 11/21/17 02:00 95 18 105/59 97 Room Air 11/21/17 01:23 99 18 109/63 97 Room Air 11/21/17 00:26 100 20 122/50 98 Room Air 11/20/17 23:11 105 18 132/59 99 Room Air 11/20/17 21:33 101 11/20/17 21:24 36.9 101 21 128/85 95 Room Air 11/20/17 21:24 95 Room Air The patient is a well-developed elderly female. She is lying in bed and appears restless. She is alert and oriented to person place and time. Recent and remote memory intact. Attention and concentration normal. Patient's speech has an intermittent dysarthric quality and seems labored at times. She is able to name objects and repeat phrases. Patient exhibits a normal vocabulary as well as normal fund of knowledge. She does have some difficulty recalling the specifics of her present illness, however. Visual poe full to confrontation. Visual acuity normal. Pupils equal round reactive to light and accommodation. Eye movements normal. Facial sensation intact. There is no facial weakness or facial droop. Hearing intact. Palate elevates to midline. Shoulder shrug intact. Tongue protrudes to midline. Sensation intact. Deep tendon reflexes are 1+ for the arms and legs bilaterally. Plantar responses downgoing. There is no dysdiadochokinesia or dysmetria with finger to nose or heel to forrest. Muscle strength normal for the arms and legs bilaterally. Muscle tone normal throughout. No atrophy. Patient exhibits a variety of dyskinetic movements affecting the perioral musculature, tongue, head and neck, and limbs. These movements are moderate to severe but affect the head, face, and neck to a large degree than the limbs. There is some right-sided cervical spasm. She does not have a pill-rolling rest tremor. She is not ataxic. Laboratory Results Past 24 Hours: 11/21/17 08:40 11/21/17 08:40 Test 11/20/17 22:30 11/20/17 22:38 11/20/17 23:20 11/21/17 08:40 Immature Granulocyte % (Auto) 0.5 % White Blood Count 16.27 K/uL (4.8-10.8) Red Blood Count 3.63 M/uL (4.2-5.4) 3.36 M/uL (4.2-5.4) Hemoglobin 11.2 g/dL (12.0-16.0) Hematocrit 32.6 % (37-47) Mean Corpuscular Volume 89.8 fL (80-100) 90.5 fL (80-100) Mean Corpuscular Hemoglobin 30.9 pg (25-34) 30.7 pg (25-34) Mean Corpuscular Hemoglobin Concent 34.4 g/dl (32-36) 33.9 g/dl (32-36) Platelet Count 165 K/uL (130-400) Mean Platelet Volume 9.7 fL (7.4-10.4) 10.0 fL (7.4-10.4) Neutrophils (%) (Auto) 89.8 % Lymphocytes (%) (Auto) 3.0 % Monocytes (%) (Auto) 6.6 % Eosinophils (%) (Auto) 0.0 % Basophils (%) (Auto) 0.1 % Neutrophils # (Auto) 14.62 K/uL (1.4-6.5) Lymphocytes # (Auto) 0.49 K/uL (1.2-3.4) Monocytes # (Auto) 1.07 K/uL (0.11-0.59) Eosinophils # (Auto) 0.00 K/uL (0-0.5) Basophils # (Auto) 0.01 K/uL (0-0.2) Immature Granulocyte # (Auto) 0.08 K/uL (0.00-0.02) Prothrombin Time 11.8 SECONDS (9.0-12.0) Prothromb Time International Ratio 1.1 (0.9-1.1) Activated Partial Thromboplast Time 32.0 SECONDS (21.0-31.0) Partial Thromboplastin Ratio 1.2 Total Bilirubin 0.6 mg/dl (0.2-1) Direct Bilirubin 0.2 mg/dl (0-0.2) Aspartate Amino Transf (AST/SGOT) 25 U/L (15-37) Alanine Aminotransferase (ALT/SGPT) 20 U/L (12-78) Alkaline Phosphatase 84 U/L (45-117) Creatine Kinase MB 3.1 ng/ml (0.5-3.6) Creatine Kinase MB Ratio 0.9 (0-3.0) Troponin I < 0.015 ng/ml (0-0.045) Total Protein 7.1 gm/dl (6.4-8.2) Albumin 3.2 gm/dl (3.4-5.0) Thyroid Stimulating Hormone (TSH) 1.400 uIu/ml (0.300-4.500) Bedside Lactic Acid Venous 0.85 mmol/L (0.90-1.70) Urine Color DK YELLOW Urine Appearance CLEAR (CLEAR) Urine pH 5.5 (4.5-7.5) Urine Specific [place] 1.029 (1.000-1.030) Urine Protein 2+ (NEG) Urine Glucose (UA) NEG (NEG) Urine Ketones 1+ (NEG) Urine Occult Blood NEG (NEG) Urine Nitrite NEG (NEG) Urine Bilirubin NEG (NEG) Urine Urobilinogen NEG (NEG) Urine Leukocyte Esterase NEG (NEG) Urine WBC (Auto) 1-5 /hpf (0-5) Urine RBC (Auto) 0-4 /hpf (0-4) Urine Hyaline Casts (Auto) 5-10 /lpf (0-5) Urine Epithelial Cells (Auto) >30 /lpf (0-5) Urine Bacteria (Auto) NEG (NEG) RDW Standard Deviation 48.9 fL (36.4-46.3) RDW Coefficient of Variation 14.9 % (11.5-14.5) Anion Gap 9.0 mmol/L (3-11) Est Creatinine Clear Calc Drug Dose 43.4 ml/min Estimated GFR () 56.3 Estimated GFR (Non- 48.5 BUN/Creatinine Ratio 14.2 (10-20) Calcium Level 8.0 mg/dl (8.5-10.1) Magnesium Level 2.1 mg/dl (1.8-2.4) Total Creatine Kinase 299 U/L (26-192) Imaging I reviewed the images as well as the radiologist's interpretation of the recently completed CT of the head. There is atrophy with associated ventricular enlargement as well as chronic microvascular ischemic change. Patient's ventricular enlargement has been identified previously as indicated in the history of present. Impression This patient has generalized dyskinesias. She does have an element of tardive dyskinesia as well as cervical dystonia and some milder dyskinetic movement of the limbs. I suspect that her speech difficulty is also related to her dyskinesias. These abnormal movements have been present for about 8 years and reportedly began after prolonged exposure to metoclopramide. Idiopathic or senile chorea is also possible. She does not have idiopathic Parkinson's disease. She has stable ventricular enlargement (previously evaluated at another institution) and probably does not have normal pressure hydrocephalus. Furthermore, hyperkinetic movements are not typically associated with NPH. Plan Tetrabenazine and other dopamine depleting agents such as Austedo are typically the preferred treatments for tardive dyskinesia. This patient was given a prescription for Austedo about 1 month ago but elected not to start it yet. For the time being, however, clonazepam would be an appropriate treatment. I would start with 0.5 mg per day, increasing to twice daily depending on her response. I do not think there is much role for Sinemet in her case. Sinemet may actually potentiate her dyskinesias and I think she would probably be better off without it. She should be able to continue to receive Botox treatments to address her cervical dystonia. I will need to follow-up with this patient in clinic regarding starting Austedo. This medication needs to be gradually uptitrated and I do not think there would be much benefit in acutely starting this medication during her hospitalization.
[2017-11-21] MEDS: LIDODERM (LIDOCAINE) PATCH 5% TD SCH (12:56)
--- NOTE | 2017-11-21 13:52 | Hospitalist Progress Note ---
Hospitalist Progress Note Date of Service Nov 21, 2017. (Jessica Cruz ., PA-C) Subjective Pt evaluation today including: conversation w/ patient, conversation w/ family (daughter/son-in-law at bedside ), physical exam, lab review, review of studies , review of inpatient medication list Voiding: no voiding problems Patient laying flat in bed. Appears mildly distressed secondary to pain/ anxiety. Currently NPO pending speech evaluation. Notes chronic issues w/ eating/ drinking due to movement disorder. Patient notes her R cervical neck pain is a chronic issue- no acute changes- gets Botox injections every 3 months, which provides significant relief. Due for Botox injection- however, neurology has been changing medications so next injection isn't scheduled until the end of December. +frequent falls have been occurring at home. Denies syncope/near-syncope, or lightheadedness/dizziness. States falls are mechanical and recalls entire events. Lives w/ . Patient/family in agreement for rehab at discharge if indicated. Per daughter, patient is to use walker but sometimes does not. Patient is alert/oriented x3. Denies any new motor/sensory deficits. Discussed in length with family about Dr. Kitchen plan of starting Klonopin, stopping Sinemet, and f/u outpatient for starting new medication. Daughter notes patient has been following w/ multiple providers and each changing medications- which has led to confusion between patient/. All in agreement that they want to follow-up with Dr. Kitchen and continue with his plan of care. Per family at bedside, patient is at baseline mentation/physical health. Patient denies any fever, chills, sweats, lightheadedness, dizziness, vision changes, CP, palpitations, edema, SOB, wheezing, cough, abdominal pain, nausea, vomiting, diarrhea, urinary symptoms, melena, numbness/tingling, weakness, depression, active bleeding, or new skin discoloration/changes. (Jessica Cruz ., PA-C) Medications Current Inpatient Medications Medications (Trade) Dose Ordered Sig/Karlie Route Start Time Stop Time Status Last Admin Dose Admin Ioversol (Optiray 320) 100 ml UD PRN IV 11/21/17 01:15 11/25/17 01:14 Atorvastatin Calcium (Lipitor Tab) 10 mg HS PO 11/21/17 21:00 12/21/17 20:59 Carbidopa/Levodopa (Sinemet 10/ 100MG Tab) 1 tab DAILY PO 11/21/17 09:00 12/21/17 08:59 Fish Oil ([place]-3 (Purified Fish Oil) Cap) 2 gm DAILY PO 11/21/17 09:00 12/21/17 08:59 Gabapentin (Neurontin Cap) 300 mg TID PO 11/21/17 09:00 12/21/17 08:59 Levothyroxine Sodium (Synthroid Tab) 112 mcg DAILYBB PO 11/21/17 06:00 12/21/17 05:59 Future Hold 11/21/17 05:12 112 MCG Lorazepam (Ativan Tab) 2 mg BID PO 11/21/17 09:00 12/21/17 08:59 Future Hold Sertraline HCl (Zoloft Tab) 100 mg BID PO 11/21/17 09:00 12/21/17 08:59 Cholecalciferol (Vitamin D Tab) 2,000 inter.unit BID PO 11/21/17 09:00 12/21/17 08:59 Pantoprazole Sodium (Protonix Tab) 40 mg BID PO 11/21/17 09:00 12/21/17 08:59 Future Hold Potassium Chloride/Sodium Chloride 1,000 ml @ 80 mls/hr [id number] IV 11/21/17 04:45 11/21/17 17:14 11/21/17 05:12 80 MLS/HR Acetaminophen (Tylenol Tab) 650 mg Q4H PRN PO 11/21/17 03:30 12/21/17 03:29 11/21/17 04:34 650 MG Al Hydrox/Mg Hydrox/Simethicone (Maalox Max Susp) 15 ml Q4H PRN PO 11/21/17 03:30 12/21/17 03:29 Magnesium Hydroxide (Milk Of Magnesia Susp) 30 ml Q6H PRN PO 11/21/17 03:30 12/21/17 03:29 Polyethylene (Miralax Powder Packet) 17 gm DAILY PRN PO 11/21/17 03:30 12/21/17 03:29 Ondansetron HCl (Zofran Inj) 4 mg Q6H PRN IV 11/21/17 03:30 12/21/17 03:29 Ketorolac Tromethamine (Toradol Inj) 15 mg Q6H PRN IV. 11/21/17 08:15 11/26/17 08:14 11/21/17 08:31 15 MG Pantoprazole Sodium 40 mg/ Syringe 10 ml @ 5 mls/min DAILY@09,21 IV 11/21/17 09:00 12/21/17 08:59 11/21/17 10:19 5 MLS/MIN Lorazepam 1 mg/ Syringe 1 ml @ 0.5 mls/min BID IV 11/21/17 09:00 12/21/17 08:59 11/21/17 10:19 0.5 MLS/MIN Levothyroxine Sodium 56 mcg/ Syringe 2.8 ml @ 1.4 mls/min DAILY@09 IV 11/22/17 09:00 12/21/17 08:59 Lidocaine (Lidoderm Patch 5%) 1 patch QAM TD 11/21/17 12:15 12/21/17 12:14 11/21/17 12:56 1 PATCH Miscellaneous (Remove Lidoderm Patch) 1 ea DAILY@ N/A 11/21/17 21:00 12/21/17 20:59 (Jessica Cruz, PA-C) Objective Vital Signs Date Time Temp Pulse Resp B/P (MAP) Pulse Ox O2 Delivery O2 Flow Rate FiO2 11/21/17 08:00 Room Air 11/21/17 07:32 36.8 92 20 118/71 (87) 96 Room Air 11/21/17 04:54 36.4 96 18 118/65 95 Room Air 11/21/17 04:01 92 18 124/59 96 11/21/17 03:31 99 11/21/17 03:09 94 18 114/62 96 Room Air 11/21/17 02:00 95 18 105/59 97 Room Air 11/21/17 01:23 99 18 109/63 97 Room Air 11/21/17 00:26 100 20 122/50 98 Room Air 11/20/17 23:11 105 18 132/59 99 Room Air 11/20/17 21:33 101 11/20/17 21:24 36.9 101 21 128/85 95 Room Air 11/20/17 21:24 95 Room Air (Jessica Cruz, PA-C) Physical Exam General Appearance: + mild distress (grabbing a R cervical spine region ) Eyes: normal inspection, PERRL ENT: hearing grossly normal Neck: + pertinent finding (+R-side of cervical spine tenderness/spasm ) Respiratory/Chest: lungs clear, no respiratory distress, no accessory muscle use Cardiovascular: regular rate, rhythm Abdomen: normal bowel sounds, non tender, soft Extremities: no pedal edema, no calf tenderness Neurologic/Psychiatric: alert, oriented x 3, + pertinent finding (anxious/ tearful; +dyskinesia of limbs/face/mouth) Skin: normal color, warm/dry, no rash (Jessica Cruz, PARonelC) Laboratory Results Last 24 Hours Test 11/20/17 22:30 11/20/17 22:38 11/20/17 23:20 11/21/17 08:40 White Blood Count 16.27 K/uL 13.63 K/uL Red Blood Count 3.63 M/uL 3.36 M/uL Hemoglobin 11.2 g/dL 10.3 g/dL Hematocrit 32.6 % 30.4 % Mean Corpuscular Volume 89.8 fL 90.5 fL Mean Corpuscular Hemoglobin 30.9 pg 30.7 pg Mean Corpuscular Hemoglobin Concent 34.4 g/dl 33.9 g/dl Platelet Count 165 K/uL 148 K/uL Mean Platelet Volume 9.7 fL 10.0 fL Neutrophils (%) (Auto) 89.8 % Lymphocytes (%) (Auto) 3.0 % Monocytes (%) (Auto) 6.6 % Eosinophils (%) (Auto) 0.0 % Basophils (%) (Auto) 0.1 % Neutrophils # (Auto) 14.62 K/uL Lymphocytes # (Auto) 0.49 K/uL Monocytes # (Auto) 1.07 K/uL Eosinophils # (Auto) 0.00 K/uL Basophils # (Auto) 0.01 K/uL RDW Standard Deviation 48.0 fL 48.9 fL RDW Coefficient of Variation 14.6 % 14.9 % Immature Granulocyte % (Auto) 0.5 % Immature Granulocyte # (Auto) 0.08 K/uL Prothrombin Time 11.8 SECONDS Prothromb Time International Ratio 1.1 Activated Partial Thromboplast Time 32.0 SECONDS Partial Thromboplastin Ratio 1.2 Sodium Level 134 mmol/L 136 mmol/L Potassium Level 3.8 mmol/L 3.8 mmol/L Chloride Level 103 mmol/L 106 mmol/L Carbon Dioxide Level 25 mmol/L 21 mmol/L Anion Gap 7.0 mmol/L 9.0 mmol/L Blood Urea Nitrogen 17 mg/dl 16 mg/dl Creatinine 1.26 mg/dl 1.11 mg/dl Est Creatinine Clear Calc Drug Dose 38.2 ml/min 43.4 ml/min Estimated GFR () 48.3 56.3 Estimated GFR (Non- 41.6 48.5 BUN/Creatinine Ratio 13.6 14.2 Random Glucose 121 mg/dl 103 mg/dl Calcium Level 8.3 mg/dl 8.0 mg/dl Magnesium Level 1.7 mg/dl 2.1 mg/dl Total Bilirubin 0.6 mg/dl Direct Bilirubin 0.2 mg/dl Aspartate Amino Transf (AST/SGOT) 25 U/L Alanine Aminotransferase (ALT/SGPT) 20 U/L Alkaline Phosphatase 84 U/L Total Creatine Kinase 332 U/L 299 U/L Creatine Kinase MB 3.1 ng/ml Creatine Kinase MB Ratio 0.9 Troponin I < 0.015 ng/ml Total Protein 7.1 gm/dl Albumin 3.2 gm/dl Thyroid Stimulating Hormone (TSH) 1.400 uIu/ml Bedside Lactic Acid Venous 0.85 mmol/L Urine Color DK YELLOW Urine Appearance CLEAR Urine pH 5.5 Urine Specific [place] 1.029 Urine Protein 2+ Urine Glucose (UA) NEG Urine Ketones 1+ Urine Occult Blood NEG Urine Nitrite NEG Urine Bilirubin NEG Urine Urobilinogen NEG Urine Leukocyte Esterase NEG Urine WBC (Auto) 1-5 /hpf Urine RBC (Auto) 0-4 /hpf Urine Hyaline Casts (Auto) 5-10 /lpf Urine Epithelial Cells (Auto) >30 /lpf Urine Bacteria (Auto) NEG (Jessica Cruz, RAMBO) Assessment and Plan 77 y/o F Hx spinal stenosis, CAD, Parkinson disease, torticollis, pacemaker. Presents from home with head and neck pain, impaired gait, weakness, incontinence and possibly confusion and slurred speech per family. She states she has been falling frequently and may have fallen and hit her head the previous day. She denies CP, SOB, N/V or fevers. Imaging of the cervical spine revealed prevertebral edema without evidence of fracture. A head CT was negative for acute findings. Chronic R cervical spine pain, cervical dystonia: - Admitted to med/surg - Prevertebral edema on CT/reactive lymph nodes on US, ?infection- MRI advised, but pacemaker is NOT MRI compatible - IV Rocephin x1 dose in ED; held further antibiotics pending ortho evaluation - IV Toradol q6 hrs PRN for pain management + Lidoderm patch - Follow CBC, CPK - Neurology consulted- continue Botox injections - Orthopedics consulted, appreciate recommendations Parkinson disease, tardive dyskinesia, cervical dystonia, impaired gait w/ multiple mechanical falls likely secondary to movement disorder: - Neurology consulted, appreciate recommendations -- Recommend Klonopin 0.5 mg daily- increase to BID if needed -- Stop Sinemet -- Continue Botox injections- follows w/ Dr. Blair -- f/u outpatient to start Austedo - PT/OT consulted- patient/family agreeable to rehab if needed - Head CT unremarkable for acute intracranial findings, CXR negative for acute findings -- At time of admission, ?CVA r/o- through further investigation, does not appear CVA related w/ no s/s, all symptoms are chronic- at baseline mentation/ physical health -- Will defer repeat head CT at this time- additionally, no mention of need to repeat by neurology Speech difficulty secondary to dyskinesias: NPO pending speech therapy evaluation and recommendations Hypomagnesium- RESOLVED: Replaced w/ IV Mag x1 gm CAD s/p stenting, pacemaker, HLD: Lipitor 10 mg daily Hypothyroidism: Synthroid 112 mcg daily- transition to IV 56 mcg daily due to difficulty w/ swallowing Anxiety: - Zoloft 100 mg BID - Ativan 2 mg BID changed to IV 1 mg BID due to NPO status GI prophylaxis: Protonix BID DVT prophylaxis: SCDs/TEDs; held chemical anticoagulation due to recent fall w/ head trauma Code Status: LEVEL I, FULL Dispo: From home, lives w/ - likely will need rehab at discharge- PT/OT and CM consulted (Jessica Cruz PA-C) Reviewed: Pt Seen/Exam by Me (Anel Saez MD) History Physician Finished Cigar [employer] Supervision Note: I interviewed and examined the patient. Discussed with AUDIE Cruz and agree with findings and plan as documented in the note. Any exceptions or clarifications are listed here: Patient very anxious. She has significant symptoms of tardive dyskinesia that she reports has worsened in the last few weeks. This has led to multiple falls. She has chronic right-sided neck pain which is slightly worse since one of her falls. Vitals reviewed Dyskinetic movements of the tongue and lips jaw, restless with agitation and constant movement of arms and legs RRR no MGR CTA no WCR Abdomen positive bowel sounds soft nontender nondistended Extremities no edema. 77-year-old female with a history of dyskinesia secondary to chronic metoclopramide use, CAD, spinal stenosis, cervical dystonia and chronic right- sided neck pain, pacemaker in situ, hypothyroidism, anxiety disorder, here with worsening of her dyskinesia leading to frequent falls and worsening right-sided neck pain. -Appreciate neurology consultation-addition of clonazepam today and will titrate up as needed with plans for starting Austedo in the outpatient setting -Awaiting orthopedics consultation for abnormal findings on CT of the neck and with worsening right-sided neck pain -Continue pain control with Toradol, acetaminophen -Was seen by speech and advanced to full liquids diet-switched medications back to by mouth form -We'll need PT/OT consultations and possible rehabilitation placement Documented By: Anel Saez (Anel Saez MD)
[2017-11-21] MEDS: CLONAZEPAM 0.5 MG TAB PO SCH (14:23)
[2017-11-21 15:34] VITALS: BP 118/80; PULSE 98; TEMP 36.7; O2SAT 92
[2017-11-21] MEDS: LORAZEPAM 1 MG TAB PO SCH (20:32)
[2017-11-21] MEDS: ATORVASTATIN 10 MG TAB PO SCH (20:32)
[2017-11-21] MEDS ORDERED: LANSOPRAZOLE SOLUTAB 30 MG PO ONE (23:00)
[2017-11-21 23:04] VITALS: BP 106/66; PULSE 103; TEMP 36.8; O2SAT 95
[2017-11-22 06:34] LABS: HEMATOCRIT 30.4 % (37-47); MEAN CELL VOLUME 91.3 fL (80-100); MEAN CORPUSCULAR HEMOGLOBIN 30.9 pg (25-34); MEAN CORPUSCULAR HGB CONC 33.9 g/dl (32-36); MEAN PLATELET VOLUME 9.7 fL (7.4-10.4); PLATELET COUNT 149 K/uL (130-400); RED BLOOD COUNT 3.33 M/uL (4.2-5.4)
[2017-11-22 07:23] VITALS: BP 113/60; PULSE 96; TEMP 36.7; O2SAT 94
[2017-11-22] MEDS: LORAZEPAM 1 MG TAB PO SCH ×2 (08:47→20:30)
[2017-11-22] MEDS: CHOLECALCIFEROL 1000 INTER.UNIT TAB PO SCH ×2 (08:48→20:30)
[2017-11-22] MEDS: SERTRALINE HCL 100 MG TAB PO SCH ×2 (08:49→20:30)
[2017-11-22] MEDS: LIDODERM (LIDOCAINE) PATCH 5% TD SCH (08:49)
[2017-11-22] MEDS: GABAPENTIN 300 MG CAP PO SCH ×3 (08:50→20:30)
[2017-11-22] MEDS: LANSOPRAZOLE SOLUTAB 30 MG PO SCH ×2 (08:50→20:30)
[2017-11-22] MEDS: OMEGA-3 (PURIFIED FISH OIL) 1 GM CAP PO SCH (08:50)
[2017-11-22] MEDS: CLONAZEPAM 0.5 MG TAB PO SCH (08:54)
[2017-11-22] MEDS: LEVOTHYROXINE 112 MCG TAB PO SCH (08:54)
[2017-11-22] MEDS ORDERED: LEVOTHYROXINE SODIUM INJ 56 MCG in SYRINGE 0 ML IV SCH (09:00)
[2017-11-22] MEDS: ACETAMINOPHEN 325 MG TAB PO PRN ×2 (12:30→22:17)
[2017-11-22] MEDS ORDERED: BENZTROPINE MESYLATE 1 MG TAB PO ONE (13:30)
--- NOTE | 2017-11-22 13:35 | Hospitalist Progress Note ---
Hospitalist Progress Note Date of Service Nov 22, 2017. Subjective Pt evaluation today including: conversation w/ patient, conversation w/ integrity consultant (Neurologist) Voiding: incontinence Pt still with significant dyskinesia and chorea movements. Discussed case with Dr. Kitchen on phone. Pt remains on liquid diet, has great difficulty speaking to me as speech difficult to understand. Denies pain except in her rt neck All Other Systems: Reviewed and Negative Objective Vital Signs Date Time Temp Pulse Resp B/P (MAP) Pulse Ox O2 Delivery O2 Flow Rate FiO2 11/22/17 10:42 Room Air 11/22/17 07:23 36.7 96 20 113/60 (77) 94 Room Air 11/21/17 23:04 36.8 103 18 106/66 (79) 95 Room Air 11/21/17 19:15 Room Air 11/21/17 16:20 Room Air 11/21/17 15:34 36.7 98 18 118/80 (93) 92 Room Air Physical Exam General Appearance: no apparent distress Eyes: normal inspection, sclerae normal ENT: hearing grossly normal, + pertinent finding (mouth mildly dry) Neck: trachea midline Respiratory/Chest: lungs clear, normal breath sounds, no respiratory distress, no accessory muscle use Cardiovascular: regular rate, rhythm, no edema, no murmur Abdomen: normal bowel sounds, non tender, soft Extremities: normal inspection, no pedal edema Neurologic/Psychiatric: alert, + pertinent finding (moderate-severe dyskinetic movements of mouth, tongue. head and neck, arms, legs, constantly moving and shifting in bed, speech mostly unintelligble, she is frustrated that I have difficulty understanding her) Skin: normal color, warm/dry, no rash Laboratory Results Last 24 Hours Test 11/22/17 06:21 White Blood Count 10.40 K/uL Red Blood Count 3.33 M/uL Hemoglobin 10.3 g/dL Hematocrit 30.4 % Mean Corpuscular Volume 91.3 fL Mean Corpuscular Hemoglobin 30.9 pg Mean Corpuscular Hemoglobin Concent 33.9 g/dl RDW Standard Deviation 51.6 fL RDW Coefficient of Variation 15.4 % Platelet Count 149 K/uL Mean Platelet Volume 9.7 fL Total Creatine Kinase 245 U/L Assessment and Plan This pt is a 77-year-old female with a history of dyskinesia secondary to chronic metoclopramide use, CAD, spinal stenosis, cervical dystonia and chronic right-sided neck pain, pacemaker in situ, hypothyroidism, anxiety disorder, here with worsening of her dyskinesia leading to frequent falls and worsening right-sided acute on chronic neck pain. Imaging of the cervical spine revealed prevertebral edema without evidence of fracture. A head CT was negative for acute findings. Chronic R cervical spine pain, cervical dystonia: - Admitted to med/surg - Prevertebral edema on CT/reactive lymph nodes on US, ?infection- MRI advised, but pacemaker is NOT MRI compatible - IV Rocephin x1 dose in ED; held further antibiotics pending ortho evaluation , WBC count has come down and was likely stress induced, do not feel has a true infection in neck - IV Toradol q6 hrs PRN for pain management + Lidoderm patch - Follow CBC, CPK -normal - Orthopedics consulted, appreciate recommendations -awaiting consult Worsening Dyskinesia/?Senile chorea vs undiagnosed neurodegenerative disorder/ impaired gait w/ multiple mechanical falls- pt attributes to h/o chronic Reglan use many years ago. Was on Sinemet which Dr. Kitchen here thinks can make this worse so this has been discontinued. She has tried Artane in the past, Amantadine caused side effects. Was to start Austedo as outpt but did not yet. Having difficulty with Speech and swallow, gait. Remains on liquid diet. -Appreciate neurology consultation-addition of clonazepam and will titrate up to 0.5mg bid today - with plans for starting Austedo in the outpatient setting after goes to rehab -will add on Cogentin 1mg daily and if helps with dyskinesia, will titrate up to 1mg bid -Awaiting orthopedics consultation for abnormal findings on CT of the neck and with worsening right-sided neck pain -but seems to be related to missing her usual Botox injection this month -Continue pain control with Toradol prn, acetaminophen -needs rehabilitation placement-could go to [facility] when dyskinesia improved somewhat-will see how doing after starting Cogentin today -permanently dc Sinemet -- Continue Botox injections as outpt- follows w/ Dr. Blair in [place] - Head CT unremarkable for acute intracranial findings, CXR negative for acute findings -- At time of admission, ?CVA r/o- through further investigation, does not appear CVA related w/ no s/s, all symptoms are chronic- at baseline mentation/ physical health -- Will defer repeat head CT at this time- additionally, no mention of need to repeat by neurology Hypomagnesium- RESOLVED: Replaced w/ IV Mag x1 gm CAD s/p stenting, pacemaker, HLD:stable. Does not know why she is not on ASA- review of records back in 2013 show no ASA then either. - Lipitor 10 mg daily -consider starting ASA 81mg daily in future but need more information-perhaps she had issues with it in the past Hypothyroidism: stable -continue po Synthroid Anxiety: - Zoloft 100 mg BID - Ativan 2 mg BID GI prophylaxis: Protonix BID DVT prophylaxis: SCDs/TEDs Code Status: LEVEL I, FULL Dispo: From home, lives w/ - likely dc to [facility] on Fri or Friday if dyskinesia improved with Cogentin and clonazepam -no AUTH required
[2017-11-22 15:13] VITALS: BP 137/79; PULSE 108; TEMP 36.7; O2SAT 98
[2017-11-22] MEDS ORDERED: CLONAZEPAM 0.5 MG TAB PO PRN (19:00)
[2017-11-22 19:11] VITALS: PULSE 104; O2SAT 98
[2017-11-22] MEDS: ATORVASTATIN 10 MG TAB PO SCH (20:30)
[2017-11-22] MEDS ORDERED: CLONAZEPAM 0.5 MG TAB PO SCH (21:00)
[2017-11-22 22:12] VITALS: BP 143/73; PULSE 116; TEMP 38; O2SAT 93
[2017-11-22 23:10] VITALS: BP 159/81; PULSE 116; TEMP 37.1; O2SAT 94
[2017-11-22] MEDS ORDERED: SODIUM CHLORIDE 0.9% 500ML 500 ML IV ONE (23:15)
[2017-11-22 23:40] LABS: COMPLETE YES; EOS % 0.1 %; HEMATOCRIT 28.7 % (37-47); IG% 0.3 %; LYMPH % 4.4 %; MEAN CELL VOLUME 89.4 fL (80-100); MEAN CORPUSCULAR HEMOGLOBIN 30.5 pg (25-34); MEAN CORPUSCULAR HGB CONC 34.1 g/dl (32-36); MEAN PLATELET VOLUME 9.8 fL (7.4-10.4); MONO % 9.3 %; NEUT % 85.9 %; PLATELET COUNT 157 K/uL (130-400); RED BLOOD COUNT 3.21 M/uL (4.2-5.4); WHITE BLOOD COUNT 11.37 K/uL (4.8-10.8)
[2017-11-23 01:24] LABS: URINE APPEARANCE CLOUDY (CLEAR); URINE BILIRUBIN NEG (NEG); URINE COLOR DK YELLOW; URINE EPITHELIAL CELL AUTO >30 /lpf (0-5); URINE NITRITE NEG (NEG); URINE SPECIFIC GRAVITY 1.026 (1.000-1.030); UROBILINOGEN NEG (NEG); ZZURINE CULT IF INDIC CATH YES
[2017-11-23 01:25] LABS: MANUAL MICROSCOPIC REQUIRED? NO; REVIEW REQ? YES
[2017-11-23 01:37] LABS: URINE PATH CASTS 0-3 GRANULAR CASTS /lpf (0)
[2017-11-23 06:00] VITALS: BP 147/77; PULSE 88; O2SAT 94
--- NOTE | 2017-11-23 06:56 | Progress Note ---
Progress Note Date of Service Nov 23, 2017. Progress Note I was called to see the patient at 610 due to low O2 sats that dropped into the 50's. By the time I arrived to see the patient she was oxygenating at 94% on 4L of an oxymask. She had decreased breath sounds bilaterally. At 620 the patient went pale and the nurse did not feel a pulse therefore a code blue was called immediately. Compressions were started and AED was applied to the patients chest. The ICU team and emergency medicine team arrived to help run the code. The patient had several dose of epi administered and R tibia IO access was established. The patient was intubated by the ICU staff. The intubation revealed large amounts of blood secretions coming from the airway. got a hold of the family and they acknowledged that they would be in as soon as possible. The patient had return of spontaneous circulation at 6:38. She had labs drawn and she was transferred to the ICU for further care. Reason for code highly suspicious for pulmonary embolism
[2017-11-23 07:02] LABS: ISTAT ARTERIAL BLOOD GAS HCO3 33 meq/L (19-24); ISTAT ARTERIAL BLOOD GAS PCO2 113 mmHg (35-46); ISTAT ARTERIAL BLOOD GAS PO2 79 mmHg (80-95); ISTAT ARTERIAL BLOOD GAS pH 7.07 (7.35-7.45); ISTAT CARBON DIOXIDE 36 mEq/l (24-31); ISTAT HEMATOCRIT 36 % (37-47); ISTAT HEMOGLOBIN 12.2 g/dl (12.0-16.0); ISTAT SODIUM 147 mEq/L (135-144)
[2017-11-23] MEDS ORDERED: FENTANYL CITRATE INJ 50 MCG/1 ML 2 ML VIAL IV PRN (07:30)
[2017-11-23] MEDS ORDERED: MIDAZOLAM HCL 5 MG/ML 1 ML VIAL IV PRN (07:30)
--- NOTE | 2017-11-23 07:32 | EMERGENCY ROOM VISIT NOTE ---
ED Visit Note First contact with patient: 06:23 CODE BLUE: Time 6:20am Called to room 385 for code blue Code being run by Lo Medina PA-C [facility] Code Status: Full per Nursing Brief summary: 77 yr old female admitted over night 2 nights ago for generalized weakness/ams. Found in cardiac arrest this morning and code called. On arrival patient in pulseless arrest, mottled without neuro response. Compressions and bagging. Left arm IV unable to obtain right thus I asked that tibial IO be placed. EPI and Bicarb given as unclear history. NSS bolus initiated. Lo Medina intubated patient with glidescope in standard fashion. There was some difficulty with intubation due to findings large amount of hemorrhage from trachea. Unclear if this was primary issue or from compressions , but it resulted in need for repeat attempt at intubation while further suction obtained. Following intubation we continued ACLS with ROSC at about 18 mins post initial code. Initially requested dopamine IV, though BP rapidly increased, thus this was held. As intubated, with pulse I signed off to team as she was heading to ICU. We discussed possibility of PE but given pulm hemorrhage I did not feel that TPA therapy indicated at this time. Critical Care: I have personally spent greater than 30 minutes of critical care time in the direct management of this patient. This was a life/limb threatening event. This includes time spent evaluating patient, direct bedside care, chart review, placing orders, interpretation of diagnostic studies, discussion with consultants, patient, and family members, as well as other required patient management activities. This 30 minutes is in excess of all separately billable procedures.
[2017-11-23] MEDS ORDERED: BUMETANIDE IV 1 MG in SYRINGE 0 ML IV ONE (07:45)
--- NOTE | 2017-11-23 07:45 | Procedure Note ---
Procedure Note Procedure Date Nov 23, 2017. Central Line Procedure time out: side/site verified, patient ID confirmed, sterile procedure used Consent obtained: emergent consent implied Time of procedure: 07:15 Performed by: physician mixer diamond powder Indications: poor venous access, central drug admin., CVP monitoring Prep: chlorhexadine prep, sterile drape, sterile procedures used Anesthesia: lidocaine 1% without epi Central line lumen: triple Central line location: internal jugular (R) Additional details: percutaneous placement, ultrasound guidance, Selinger technique used, line sutured, good blood return CXR: appropriate position, no pneumothorax Complications: none Patient tolerated procedure: well Post-procedure vital signs: reviewed and stable Comments: Consent was obtained prior to procedure. Indication, risks, and benefits were explained at length. Procedure: Procedure was performed under strict sterile field in O.R. fashion. The right neck and chest were cleaned with chloroprep scrub and the pt was draped in sterile fashion. The internal jugular vein was identified using ultrasound. After anesthetizing the area with 5cc of lidocaine, venous blood was withdrawn after accessing the vein under ultrasound guidance. The syringe was removed and a guide wire was advanced into the introducer needle.The dilator was advanced after being exchanged for the introducer needle. After appropriate dilation was obtained, the dilator was removed and the central catheter was placed over the guide wire using Seldinger technique. The wire was removed intact and the catheter was sutured at 16cm. A surgical dressing was placed over the catheter with a biofilm shield in place. At the time of the procedure each port was aspirated and then flushed properly. Pt tolerated the procedure well with no complications. Post procedure x-ray was completed, placement was appropriate and no pneumothorax was noted. Critical Care Medicine Point of Care Bedside Ultrasound Procedure: Procedural Ultrasound Procedure Date: 11/23/17 Indication: Code Blue Attending: Miguel Angel Plunkett DO Resident/Physician Reports Analysis Manager: Juliette Simco; PA-C If for central venous access Artery AND Vein visualized: Y Compressible Vein: Y Guidewire or Short Catheter seen in vein prior to dilation: Y Line confirmed in Vein with ultrasound: Y If no lung sliding or not obtained has CXR been ordered: Y Impression: Code Blue with limited access Plan: Bedside Ultrasound demonstrates fluid overload; will begin diuresis. Line is in place and may be used. Images obtained are saved for permanent record
[2017-11-23] MEDS ORDERED: DOPamine 400MG / D5W 400 MG IV PRN (07:50)
--- NOTE | 2017-11-23 07:55 | DIAGNOSTIC IMAGING REPORT ---
CHEST ONE VIEW PORTABLE CLINICAL HISTORY: Respiratory failure COMPARISON STUDY: 11/20/2017 FINDINGS: The cardiac and mediastinal contours remain stable. Since the prior study, the patient has developed extensive bilateral pulmonary airspace opacities. These could be secondary to either pulmonary edema, aspiration, pneumonia, or a diffuse lung injury. An endotracheal tube has been placed which is 42 mm above the sawyer. There is a nasogastric tube within the stomach. There is a right internal jugular central venous catheter which projects of the superior vena cava. There is no pneumothorax.[ IMPRESSION: 1. Interval development of extensive bilateral pulmonary airspace opacities 2. Interval placement of endotracheal tube 4.2 cm above the sawyer 3. Interval placement of a nasogastric tube passes into the stomach 4. Interval placement of a right internal jugular central venous catheter. The tip projects over the superior vena cava. There is no pneumothorax. Electronically signed by: John Michelle M.D. 11/23/2017 7:53 AM Dictated Date/Time: 11/23/2017 7:51 AM
--- NOTE | 2017-11-23 07:56 | Procedure Note ---
Procedure Note Date of Service Nov 23, 2017. Procedure Note Procedure Date:11/23/17 Procedure: Endotracheal intubation Pre-procedure Diagnosis: Respiratory Arrest and PEA Post-procedure Diagnosis: same as above Prior to Procedure: Informed Consent: Emergent Attending: Staff: Dr. Catracho Herring Procedure Performed by: Juliette Medina PA-C Indications: Respiratory Arrest The identity of the patient was confirmed and a bedside time out was performed. Description of Procedure: Patient was evaluated and required intubation for respiratory failure during Code Blue. The patient was prepared in the usual fashion. The 3 MAC Glydescope was prepared and a 7.5 Fr endotracheal tube was placed endotracheally with a Grade 1 view under direct visualization to 24 cm at the teeth. The endotracheal tube was noted to pass through the vocal cords. Chest rise was bilateral. Bilateral breath sounds were heard without air sounds in the abdomen. Mist was noted in the endotracheal tube. End-tidal CO2 measurement was positive. Chest x- ray shows proper endotracheal tube placement. Complications: None Findings: Tracheal Hemorrhage noted Specimens: not applicable
[2017-11-23 08:01] LABS: HEMATOCRIT 33.8 % (37-47); MEAN CELL VOLUME 92.9 fL (80-100); MEAN CORPUSCULAR HEMOGLOBIN 30.5 pg (25-34); MEAN CORPUSCULAR HGB CONC 32.8 g/dl (32-36); MEAN PLATELET VOLUME 10.1 fL (7.4-10.4); PLATELET COUNT 171 K/uL (130-400); RED BLOOD COUNT 3.64 M/uL (4.2-5.4)
[2017-11-23 08:09] LABS: INR 1.3 (0.9-1.1); PARTIAL THROMBOPLASTIN RATIO 1.3
[2017-11-23] MEDS ORDERED: VANCOMYCIN INJ 1,000 MG in SODIUM CHLORIDE 0.9% 250ML 250 ML IV SCH (08:15)
[2017-11-23 08:28] LABS: BUN/CREATININE RATIO 15.5 (10-20); CALCIUM 7.9 mg/dl (8.5-10.1); CREATININE 1.75 mg/dl (0.60-1.20); MAGNESIUM 2.4 mg/dl (1.8-2.4); POTASSIUM 3.7 mmol/L (3.5-5.1)
[2017-11-23] MEDS ORDERED: VANCOMYCIN INJ 1,500 MG in SODIUM CHLORIDE 0.9% 500ML 500 ML IV ONE (08:30)
[2017-11-23] MEDS ORDERED: NOREPINEPHRINE BIT INJ 4 MG in DEXTROSE 5% 250ML 250 ML IV PRN (08:30)
[2017-11-23 08:36] LABS: ISTAT ALLEN TEST Pass; ISTAT ARTERIAL BLOOD GAS HCO3 17 meq/L (19-24); ISTAT ARTERIAL BLOOD GAS PCO2 41 mmHg (35-46); ISTAT ARTERIAL BLOOD GAS PO2 61 mmHg (80-95); ISTAT ARTERIAL BLOOD GAS pH 7.21 (7.35-7.45); ISTAT CARBON DIOXIDE 18 mEq/l (24-31); ISTAT DELIVERY SYSTEM Ventilator; ISTAT FIO2 100 %; ISTAT PEEP 10; ISTAT RATE 12; ISTAT SITE R Radial; VE 6.6; Vt 550
[2017-11-23] MEDS ORDERED: NOREPINEPHRINE BIT INJ 8 MG in DEXTROSE 5% 500ML 500 ML IV STA (08:37)
[2017-11-23 08:43] LABS: BASO % 0.2 %; BASO ABS # 0.03 K/uL (0-0.2); COMPLETE YES; ECHINOCYTES 2+; EOS % 0.1 %; IG% 0.7 %; LYMPH % 8.7 %; LYMPH ABS # 1.17 K/uL (1.2-3.4); MONO % 6.2 %; NEUT % 84.1 %
[2017-11-23] MEDS ORDERED: VANCOMYCIN CONSULT ACTIVE PRN (08:45)
[2017-11-23] MEDS: LIDODERM (LIDOCAINE) PATCH 5% TD SCH (08:48)
[2017-11-23] MEDS: LANSOPRAZOLE SOLUTAB 30 MG PO SCH (08:48)
[2017-11-23 08:49] LABS: PHOSPHORUS 8.4 mg/dl (2.5-4.9)
[2017-11-23] MEDS ORDERED: DOXYCYCLINE IV 100 MG in DEXTROSE 5% 100ML 100 ML IV SCH (09:00)
[2017-11-23] MEDS ORDERED: CLONAZEPAM 0.5 MG TAB PO SCH (09:00)
[2017-11-23] MEDS ORDERED: BENZTROPINE MESYLATE 1 MG TAB PO SCH (09:00)
[2017-11-23] MEDS ORDERED: CEFEPIME IV 1,000 MG in SYRINGE 0 ML IV SCH (09:00)
[2017-11-23] MEDS ORDERED: CEFEPIME IV 1,000 MG in DEXTROSE 5% 100ML 100 ML IV SCH (09:00)
[2017-11-23] MEDS ORDERED: methylPREDNISolone 1000 MG in DEXTROSE 5% 250 ML IV ONE (09:15)
[2017-11-23] MEDS ORDERED: MoRPHine SULFATE 2 MG/ML CARP ONE (09:21)
--- NOTE | 2017-11-23 09:24 | Critical Care Consultation ---
Critical Care Consultation Date of Consultation: Nov 23, 2017. Attending Physician: Catracho Herring M.D. Reason for Consultation: CODE BLUE, cardio pulmonary arrest History of Present Illness Patient is a 77-year-old female admitted 11/21/2017 for increasing falls. She is significant past medical history for tardive dyskinesia and cervical dystonia secondary to metoclopramide. In review of a H&P dated 03/08/2014 past medical history includes coronary artery disease status post stent and pacemaker (pacemaker was placed and do boys in 2012). She also has a history of severe lumbar stenosis who underwent decompressive discectomy in March 2014. Past surgical history includes cholecystectomy nephrectomy and cataract surgery. Early this morning the patient had a sudden decrease in her oxygen saturation, supplemental O2 was applied, however she proceeded to become more hypotensive in the bedside nurse did not feel a pulse and a CODE BLUE was called. An IO was placed in her right tibia and was given ACLS medications. Please see the code flow sheet for further details. Patient received approximately 20 minutes of CPR. She was intubated, stabilized and transferred to the ICU for further management. Social History Unable to obtain from patient secondary to intubation Smoking Status: Never Smoker Smokeless Tobacco Use: No Drug Use: none Marital Status: Housing Status: lives with family Allergies Coded Allergies: Metoclopramide (Verified Allergy, Unknown, UNKNOWN, 11/22/17) Tramadol (Verified Allergy, Unknown, UNKNOWN, 11/22/17) Iodinated Diagnostic Agents (Verified Adverse Reaction, Intermediate, RED CHEEKS, 11/22/17) Home Medications Scheduled Atorvastatin (Lipitor), 10 MG PO MWF Carbidopa-Levodopa (Carbidopa/Levodopa), 1 TAB PO DAILY Cholecalciferol (Vitamin D3), 2,000 INTER.UNIT PO BID Fish Oil ([place]-3), 2,000 MG PO DAILY Gabapentin (Neurontin), 300 MG PO TID Levothyroxine Sodium (Synthroid), 112 MCG PO DAILY Lorazepam (Ativan), 1 TAB PO BID Multivitamin (Multivitamin), 1 TAB PO DAILY Omeprazole (Omeprazole), 1 TAB PO BID Sertraline Hcl (Zoloft), 100 MG PO BID Current Inpatient Medications Current Inpatient Medications Medications (Trade) Dose Ordered Sig/Karlie Route Start Time Stop Time Status Last Admin Dose Admin Ioversol (Optiray 320) 100 ml UD PRN IV 11/21/17 01:15 11/25/17 01:14 Atorvastatin Calcium (Lipitor Tab) 10 mg HS PO 11/21/17 21:00 12/21/17 20:59 11/22/17 20:30 10 MG Fish Oil ([place]-3 (Purified Fish Oil) Cap) 2 gm DAILY PO 11/21/17 09:00 12/21/17 08:59 11/22/17 08:50 2 GM Gabapentin (Neurontin Cap) 300 mg TID PO 11/21/17 09:00 12/21/17 08:59 11/22/17 20:30 300 MG Levothyroxine Sodium (Synthroid Tab) 112 mcg DAILYBB PO 11/21/17 06:00 12/21/17 05:59 Future hold 11/22/17 08:54 112 MCG Sertraline HCl (Zoloft Tab) 100 mg BID PO 11/21/17 09:00 12/21/17 08:59 11/22/17 20:30 100 MG Cholecalciferol (Vitamin D Tab) 2,000 inter.unit BID PO 11/21/17 09:00 12/21/17 08:59 11/22/17 20:30 2,000 INTER.UNIT Acetaminophen (Tylenol Tab) 650 mg Q4H PRN PO 11/21/17 03:30 12/21/17 03:29 11/22/17 22:17 650 MG Al Hydrox/Mg Hydrox/Simethicone (Maalox Max Susp) 15 ml Q4H PRN PO 11/21/17 03:30 12/21/17 03:29 Magnesium Hydroxide (Milk Of Magnesia Susp) 30 ml Q6H PRN PO 11/21/17 03:30 12/21/17 03:29 Polyethylene (Miralax Powder Packet) 17 gm DAILY PRN PO 11/21/17 03:30 12/21/17 03:29 Ondansetron HCl (Zofran Inj) 4 mg Q6H PRN IV 11/21/17 03:30 12/21/17 03:29 Ketorolac Tromethamine (Toradol Inj) 15 mg Q6H PRN IV. 11/21/17 08:15 11/26/17 08:14 11/21/17 20:40 15 MG Lidocaine (Lidoderm Patch 5%) 1 patch QAM TD 11/21/17 12:15 12/21/17 12:14 11/22/17 08:49 1 PATCH Miscellaneous (Remove Lidoderm Patch) 1 ea DAILY@21 N/A 11/21/17 21:00 12/21/17 20:59 11/22/17 20:18 1 EA Lorazepam (Ativan Tab) 2 mg BID PO 11/21/17 21:00 12/21/17 20:59 11/22/17 20:30 2 MG Lansoprazole (Prevacid Solutab) 30 mg BID PO 11/22/17 09:00 12/22/17 08:59 11/22/17 20:30 30 MG Clonazepam (Klonopin Tab) 0.5 mg QAM PO 11/23/17 09:00 12/21/17 13:29 Clonazepam (Klonopin Tab) 0.5 mg HS PRN PO 11/22/17 19:00 12/22/17 18:59 Review of Systems Unable to obtain secondary to intubation Physical Exam Date Time Temp Pulse Resp B/P (MAP) Pulse Ox O2 Delivery O2 Flow Rate FiO2 11/23/17 06:53 100 11/23/17 00:30 Room Air 11/22/17 23:10 37.1 116 20 159/81 (107) 94 Room Air 11/22/17 22:12 38.0 116 24 143/73 (96) 93 Room Air 11/22/17 19:11 104 98 Room Air 11/22/17 15:30 Room Air 11/22/17 15:13 36.7 108 18 137/79 (98) 98 Room Air 11/22/17 10:42 Room Air General Appearance: no apparent distress Head: normocephalic, atraumatic Eyes: other (pupils sluggishly reactive) ENT: other (intubated) Neck: trachea midline Respiratory: rales (bilaterally) Abdomen: non tender, no bowel sounds Genitourinary - Female: external genitalia normal, other (Alonso in place) Edema: Bilateral LE (1+) Pulses: radial (R) (1+), radial (L) (1+) Neuro: other (GCS 3T) Laboratory Results Last 24 Hours Test 11/22/17 23:32 11/23/17 00:45 11/23/17 06:47 11/23/17 07:48 White Blood Count 11.37 K/uL Red Blood Count 3.21 M/uL Hemoglobin 9.8 g/dL Hematocrit 28.7 % Mean Corpuscular Volume 89.4 fL Mean Corpuscular Hemoglobin 30.5 pg Mean Corpuscular Hemoglobin Concent 34.1 g/dl Platelet Count 157 K/uL Mean Platelet Volume 9.8 fL Neutrophils (%) (Auto) 85.9 % Lymphocytes (%) (Auto) 4.4 % Monocytes (%) (Auto) 9.3 % Eosinophils (%) (Auto) 0.1 % Basophils (%) (Auto) 0.0 % Neutrophils # (Auto) 9.77 K/uL Lymphocytes # (Auto) 0.50 K/uL Monocytes # (Auto) 1.06 K/uL Eosinophils # (Auto) 0.01 K/uL Basophils # (Auto) 0.00 K/uL RDW Standard Deviation 50.2 fL RDW Coefficient of Variation 15.2 % Immature Granulocyte % (Auto) 0.3 % Immature Granulocyte # (Auto) 0.03 K/uL Lactic Acid Level 0.7 mmol/L Urine Color DK YELLOW Urine Appearance CLOUDY Urine pH 5.0 Urine Specific [place] 1.026 Urine Protein 2+ Urine Glucose (UA) NEG Urine Ketones 1+ Urine Occult Blood 1+ Urine Nitrite NEG Urine Bilirubin NEG Urine Urobilinogen NEG Urine Leukocyte Esterase NEG Urine WBC (Auto) 1-5 /hpf Urine RBC (Auto) 0-4 /hpf Urine Hyaline Casts (Auto) 1-5 /lpf Urine Epithelial Cells (Auto) >30 /lpf Urine Bacteria (Auto) NEG Urine Renal Epithelial Cells 0-5 /lpf Urine Pathogenic Casts 0-3 GRANULAR CASTS /lpf Urine Yeast (Auto) . Bedside Hemoglobin 12.2 g/dl Bedside Hematocrit 36 % Bedside Blood Gas pH (LAB) 7.07 Bedside Blood Gas pCO2 (LAB) 113 mmHg Bedside Blood Gas pO2 (LAB) 79 mmHg Bedside Blood Gas HCO3 (LAB) 33 meq/L Bedside Blood Gas Total CO2 36 mEq/l Bedside Blood Gas Base Excess (LAB) 2.0 meq/L Bedside Blood Gas O2 Saturation 87.0 % Bedside Sodium 147 mEq/L Bedside Potassium 5.8 mEq/L Diagnostic Results Chest x-ray dated 11/23/2017 revealed bilateral puffy infiltrates, no pneumothorax, NG placement below the diaphragm, successful right IJ placement, endotracheal tube projecting 3 cm above the sawyer. Limited bedside ultrasound revealed a distended IVC without respiratory variation, bilateral B profile from the anterior chest to the posterior, difficult to obtain images of the heart itself, 2. compression test was negative bilaterally: Impression blue protocol consistent with pulmonary edema. Assessment & Plan Reason Critically Ill: 77-year-old female who suffered cardiac arrest with return of spontaneous circulation PLAN: Neuro: Generalized dyskinesias * Reviewed neurology consult * Clonazepam when necessary * Holding at this time Resp: Hypercarbic hypoxic respiratory failure * Given cardiac history suspect flash pulmonary edema CV: Cardiovascular disease * Status post pacemaker and Herrera 2013 * Trend troponins every 8 * Stat echocardiogram * Cardiology consultation * Low threshold for discussion with interventionalist Fluids/Renal: Volume overload * 1 mg Bumex ID: Febrile overnight * Urine culture and blood cultures ordered * Empiric broad-spectrum: Cefepime, vancomycin, doxycycline given recent cardiovascular event and risk for prolonged QTC associated with macrolide and fluoroquinolone use GI/Nutrition: OG tube to low intermittent suction Heme: Anemia Chemical prophylaxis had been held in the setting of nonspecific prevertebral and right-sided cervical edema * Will start heparin prophylaxis Endocrine: Accu-Cheks per protocol Musculoskeletal: * Paravertebral soft tissue edema. D/W radiology, obtained on [address], ligamentous injury in DDx, however, unlikely. Infectious etiology also considered, however unlikely. I obtained a STAT ECHO and discussed the results with Dr. Salvador. We agreed this may represent AMI, and called heart alert. Immediately after, and 2 children arrived. Discussed events and treatment options. They informed she had a living will and did not want CPR and intubation. Explained this would be a potentially reversible etiology, however, would likely be facing long recovery in setting of acute cardiac arrest. All family in agreement she would not want to undergo cardiac catheterization and would desire to be kept comfortable. All aggressive measures were stopped, comfort measures initiated. Family was grieving appropriately at the bedside, support offered. I have personally spent 150 minutes of critical care time in the direct management of this patient. This is a life/limb threatening event. This includes time spent evaluating patient, direct bedside care, chart review, placing orders, interpretation of diagnostic studies, discussion with consultants, patient, and family members, as well as other required patient management activities. This time is exclusive of all separately billable procedures, and teaching time and separate from and in addition to any other critical care service time.
[2017-11-23] MEDS ORDERED: MoRPHine SULFATE 2 MG/ML CARP IV PRN (09:30)
--- NOTE | 2017-11-23 09:41 | ECHOCARDIOGRAM REPORT ---
*NOTICE TO RECEIVING REPUBLICAN AGENCY This information is strictly Confidential and protected under [place] law. [place] law prohibits you from making any further disclosure of this information unless further disclosure is expressly permitted by the written consent of the person to whom it pertains or is authorized by law. A general authorization for the release of medical or other information is not sufficient for this purpose. Hospital accepts no responsibility if the information is made available to any other person, INCLUDING THE PATIENT. Interpretation Summary * Name: CAITLIN JIMENEZ Study Date: 11/23/2017 08:10 AM BP: 147/77 mmHg * [facility] HR: 88 * : 1940 (M/d/yyyy) Gender: Female Height: 65 in * Age: 77 yrs Ethnicity: CA Weight: 157 lb * Ordering Physician: Jonh Plunkett * Referring Physician: Self, Referred * Performed By: Jasson Blanchard RDCS * * Reason For Study: Cardiac arrest * BSA: 1.8 m2 * -- Conclusions -- * The left ventricle is normal in size. * There is mild concentric left ventricular hypertrophy. * Left ventricular systolic function is moderately reduced. * Ejection Fraction = 35-40%. * There is an LAD wall motion abnormality. The septum, mid to distal anteroseptum, distal anterior wall, apex and infero apex are akinetic. * The RV is not well seen but appears dilated and the RV free wall appears hypokinetic. * Moderate Pulmonary HTN (PA Pressure 48 mm/hg) * Diastolic dysfunction, Grade II, consistent with elevated left atrial pressure. Procedure Details * A complete two-dimensional transthoracic echocardiogram was performed (2D, M-mode, Doppler and color flow Doppler). * The study was technically difficult, but visualization was adequate with the administration of Definity ultrasound contrast. Left Ventricle * The left ventricle is normal in size. * There is mild concentric left ventricular hypertrophy. * Ejection Fraction = 35-40%. * Left ventricular systolic function is moderately reduced. * There is an LAD wall motion abnormality. The septum, mid to distal anteroseptum, distal anterior wall, apex and infero apex are akinetic. Right Ventricle * The RV is not well seen but appears dilated and the RV free wall appears hypokinetic. Atria * The left atrial size is normal. * The right atrium is mildly dilated. Mitral Valve * The mitral valve is grossly normal. Tricuspid Valve * The tricuspid valve is not well visualized, but is grossly normal. * There is mild tricuspid regurgitation. * Moderate Pulmonary HTN (PA Pressure 48 mm/hg) Aortic Valve * The aortic valve is trileaflet. Pulmonic Valve * The pulmonic valve is not well visualized. Great Vessels * The aortic root is normal size. Pericardium/Pleural * There is no pericardial effusion. Great Vessels * Normal inferior vena cava diameter and respiratory variation suggests normal central venous pressure. Left Ventricular Diastolic Function * Diastolic dysfunction, Grade II, consistent with elevated left atrial pressure. MMode 2D Measurements and Calculations IVSd 1.3 cm IVSs 1.8 cm LVIDd 2.8 cm LVIDs 2.1 cm LVPWd 1.2 cm LVPWs 1.7 cm IVS/LVPW 1.0 FS 26.6 % EDV(Teich) 29.4 ml ESV(Teich) 13.6 ml EF(Teich) 53.9 % EDV(cubed) 21.8 ml ESV(cubed) 8.6 ml EF(cubed) 60.5 % % IVS thick 40.8 % % LVPW thick 35.5 % LV mass(C)d 105.2 grams LV mass(C)dI 58.9 grams/m\S\2 LV mass(C)s 131.1 grams LV mass(C)sI 73.4 grams/m\S\2 SV(Teich) 15.9 ml SI(Teich) 8.9 ml/m\S\2 SV(cubed) 13.2 ml SI(cubed) 7.4 ml/m\S\2 Ao root diam 2.5 cm Ao root area 4.9 cm\S\2 ACS 1.4 cm LA dimension 2.8 cm asc Aorta Diam 3.0 cm LA/Ao 1.1 LVOT diam 1.8 cm LVOT area 2.5 cm\S\2 LVAd ap4 25.1 cm\S\2 LVLd ap4 7.3 cm EDV(MOD-sp4) 71.8 ml EDV(sp4-el) 73.4 ml LVAs ap4 16.2 cm\S\2 LVLs ap4 6.6 cm ESV(MOD-sp4) 33.2 ml ESV(sp4-el) 33.6 ml EF(MOD-sp4) 53.8 % EF(sp4-el) 54.1 % LVAd ap2 25.6 cm\S\2 LVLd ap2 7.6 cm EDV(MOD-sp2) 71.2 ml EDV(sp2-el) 73.3 ml LVAs ap2 18.4 cm\S\2 LVLs ap2 6.5 cm ESV(MOD-sp2) 43.5 ml ESV(sp2-el) 44.4 ml EF(MOD-sp2) 39.0 % EF(sp2-el) 39.4 % LVLd %diff 3.8 % EDV(MOD-bp) 72.7 ml LVLs %diff -2.22 % ESV(MOD-bp) 38.5 ml EF(MOD-bp) 47.0 % SV(MOD-sp4) 38.6 ml SI(MOD-sp4) 21.6 ml/m\S\2 SV(MOD-sp2) 27.7 ml SI(MOD-sp2) 15.5 ml/m\S\2 SV(MOD-bp) 34.2 ml SI(MOD-bp) 19.2 ml/m\S\2 SV(sp4-el) 39.7 ml SI(sp4-el) 22.2 ml/m\S\2 SV(sp2-el) 28.9 ml SI(sp2-el) 16.2 ml/m\S\2 Doppler Measurements and Calculations MV E max blayne 91.6 cm/sec MV A max blayne 62.2 cm/sec MV E/A 1.5 MV dec time 0.20 sec Ao V2 max 156.7 cm/sec Ao max PG 9.8 mmHg Ao max PG (full) 6.2 mmHg SHANTEL(V,A) 1.5 cm\S\2 SHANTEL(V,D) 1.5 cm\S\2 LV V1 max PG 3.6 mmHg LV V1 max 94.5 cm/sec PA V2 max 107.8 cm/sec PA max PG 4.7 mmHg TR max blayne 319.1 cm/sec
[2017-11-23] MEDS ORDERED: NOREPINEPHRINE BIT INJ 8 MG in DEXTROSE 5% 500ML 500 ML IV PRN (09:45)
--- NOTE | 2017-11-23 09:53 | Discharge Summary ---
Discharge Summary Date of Service Nov 23, 2017. Discharge Summary Admission Date: Nov 21, 2017 at 03:18 Discharge Date: Nov 23, 2017 Discharge Disposition: Principal Diagnosis: Acute Myocardial Infarction Secondary Diagnoses/Problems: General Dyskinesias HTN Atrial Fibrillation Disturbance of Gait Lumbar Stenosis Procedures: Echocardiogram 11/23/17 Right IJ central Venous Access Admission Information HPI (per Admitting provider): 77 y/o F Hx spinal stenosis, CAD, Parkinson disease, torticollis, pacemaker. Presents from home with head and neck pain, impaired gait, weakness, incontinence and possibly confusion and slurred speech per family. She states she has been falling frequently and may have fallen and hit her head the previous day. She denies CP, SOB, N/V or fevers. Imaging of the cervical spine revealed prevertebral edema without evidence of fracture. A head CT was negative for acute findings. Physical Exam (per Admitting): General Appearance: + pertinent finding (PLeasant elderly female who appears markedly uncomfortable - she is entirely oriented - speech may be slurred but is coherent and relatively clear) Head: normocephalic, + pertinent finding (No head trauma noted - cervical spine is tender) Eyes: normal inspection ENT: normal ENT inspection, pharynx normal Neck: supple, no JVD Respiratory/Chest: chest non-tender, lungs clear, normal breath sounds Cardiovascular: regular rate, rhythm, no edema, no gallop Abdomen/GI: normal bowel sounds, non tender, soft Back: no CVA tenderness Extremities/Musculoskelatal: normal inspection, no calf tenderness, normal capillary refill Neurologic/Psych: + pertinent finding (She does not exhibit any unilateral discreet weakness or sensory loss presently - she is fully oriented - her head is tilting L - speech may be slighly slurred ) Skin: normal color, warm/dry, no rash Hospital Course Patient is a 77-year-old female who was admitted 11/20/2017 for impaired gait and multiple falls with associated neck pain, altered mental status, history of coronary artery disease and generalized dyskinesia. She was seen by neurology to assist with management of her general dyskinesias. She was awaiting formal consultation from orthopedics with regards to a abnormal finding of prevertebral edema and worsening right-sided neck pain. In the first mate of 11/23/2017 the patient was noted to have hypoxic respiratory failure which decompensated into pulseless electrical activity requiring intubation and ACLS medications. Return of spontaneous circulation was achieved and she was transferred to the ICU for further management. She underwent a stat echocardiogram and was planned to undergo percutaneous intervention for possible acute coronary syndrome. Family arrived at the bedside who stated she would not want to undergo heroic efforts and she would desire to be made comfortable. All further treatment was stopped comfort measures were initiated and the patient peacefully with her family grieving by the bedside. Total time spent on discharge = 15 minutes This includes examination of the patient, discharge planning, medication reconciliation, and communication with other providers. Discharge Instructions None
--- NOTE | 2017-11-23 09:54 | Death Pronouncement Note ---
Pronouncement Note Date & Time of Nov 23, 2017. 0942 Pronouncement At time of pronouncement the patients pupils were fixed and dilated, there was no spontaneous respiratory effort, no palpable pulse, no audible heart tones, and no response to pain or voice. Time of 0942
[2017-11-23 09:56] LABS: INFLUENZA A PCR Neg for Influ A (NEG); INFLUENZA B PCR Neg for Influ B (NEG)
--- NOTE | 2017-11-23 16:33 | Discharge Summary ---
Discharge Summary Date of Service Nov 23, 2017. Discharge Summary Admission Date: Nov 21, 2017 at 03:18 Discharge Date: Nov 23, 2017 Discharge Disposition: Home Principal Diagnosis: Acute DE, cardiogenic shock Problems/Secondary Diagnoses: 1) CAD - distant stent placement 2) Pacemaker 3) Parkinson disease 4) Lumbar stenosis - required decompression of L2-5 in 2013 5) Torticollis 6) Compression fractures of L1,2 Procedures: Intubation, IO, central lines on 11/23 Consultations: Dr. Dimitrios Salvador Discharge Exam Pt's family is present. They have discussed care with ICU staff and planning for comfort measures. Physical Exam: General Appearance: WD/WN, no apparent distress Respiratory/Chest: no respiratory distress (on vent) Cardiovascular: regular rate, rhythm (on monitor and pressors), no edema Neurologic/Psychiatric: + pertinent finding (sedated) Skin: normal color, warm/dry Hospital Course Per H&P: 77 y/o F Hx spinal stenosis, CAD, Parkinson disease, torticollis, pacemaker. Presents from home with head and neck pain, impaired gait, weakness , incontinence and possibly confusion and slurred speech per family. She states she has been falling frequently and may have fallen and hit her head the previous day. She denies CP, SOB, N/V or fevers. Imaging of the cervical spine revealed prevertebral edema without evidence of fracture. A head CT was negative for acute findings. Heart Alert was called on pt this AM prior to my having a chance to meet with pt or family. ICU physician had been managing pt since early this AM for rapid decline requiring intubation, IO, and multiple lines with ECHO suspicious for DE Concern for cardiogenic shock was noted Dr. Plunkett reports speaking extensively with family regarding ongoing care and they feel that pt would not have wanted heroic measures. It was decided for pt to move to comfort care once another daughter who is out of town was contacted. Pt removed from comfort care and passed shortly after. Dr. Plunkett was present and pronounced pt. See his summary and d/c summary for details. Per Grease Refiner Operator summary: Patient is a 77-year-old female who was admitted 2016 for impaired gait and multiple falls with associated neck pain, altered mental status, history of coronary artery disease and generalized dyskinesia. She was seen by neurology to assist with management of her general dyskinesias. She was awaiting formal consultation from orthopedics with regards to a abnormal finding of prevertebral edema and worsening right-sided neck pain. In the car salesperson of 11/23/2017 the patient was noted to have hypoxic respiratory failure which decompensated into pulseless electrical activity requiring intubation and ACLS medications. Return of spontaneous circulation was achieved and she was transferred to the ICU for further management. She underwent a stat echocardiogram and was planned to undergo percutaneous intervention for possible acute coronary syndrome. Family arrived at the bedside who stated she would not want to undergo heroic efforts and she would desire to be made comfortable. All further treatment was stopped comfort measures were initiated and the patient peacefully with her family grieving by the bedside. Total Time Spent: Greater than 30 minutes This includes examination of the patient, discharge planning, medication reconciliation, and communication with other providers. Discharge Instructions Please refer to the electronic Patient Visit Report (Discharge Instructions) for additional information. Additional Copies To Yevgeniy Mak M.D.
== END 2017-11-23 09:42 | disposition expired | DRG 91 ==
LOC: EDBD 21:18 → C.EDA 21:19 → C.MSN 11-21 03:18 → ENRESERV 11-21 03:36 → C.MSICU 11-23 07:11
PROVIDERS: ADMIT Internal Medicine; ATTEND Internal Medicine
PROC: 5A12012 Performance of Cardiac Output, Single, Manual (ICD-10-PCS; principal; 2017-11-23)
PROC: 5A2204Z Restoration of Cardiac Rhythm, Single (ICD-10-PCS; principal; 2017-11-23)
PROC: 0BH17EZ Insertion of Endotracheal Airway into Trachea, Via Natural or Artificial Opening (ICD-10-PCS; 2017-11-23)
PROC: 05HM33Z Insertion of Infusion Device into Right Internal Jugular Vein, Percutaneous Approach (ICD-10-PCS; 2017-11-23)
DX: G24.01 Drug induced subacute dyskinesia (principal); I21.9 Acute myocardial infarction, unspecified; J96.01 Acute respiratory failure with hypoxia; J96.02 Acute respiratory failure with hypercapnia; G24.8 Other dystonia; T45.0X5 Adverse effect of antiallergic and antiemetic drugs; R57.0 Cardiogenic shock; Z51.5 Encounter for palliative care; G89.29 Other chronic pain; M54.2 Cervicalgia; G20 Parkinson's disease; G25.4 Drug-induced chorea; R29.6 Repeated falls; R47.81 Slurred speech; R41.0 Disorientation, unspecified; E83.42 Hypomagnesemia; I25.10 Atherosclerotic heart disease of native coronary artery without angina pectoris; E03.9 Hypothyroidism, unspecified; F41.9 Anxiety disorder, unspecified; Z66 Do not resuscitate; Z95.0 Presence of cardiac pacemaker; Z79.899 Other long term (current) drug therapy; Z91.041 Radiographic dye allergy status